=== PATIENT | female | born 1940 | race Caucasian/White ===

== ENCOUNTER 2019-04-07 21:49 | Emergency (ER) | payer MEDICARE ==
[~2019-04-07 21:49] MED LIST: ISOVUE-370 76%-LOCM 1 ML ONE
[2019-04-07 22:31] LABS: #Basophils 0.1 thou/uL (0.0-0.2); #Monocytes 0.6 thou/uL (0.11-0.59); #Neutrophils 3.8 thou/uL (1.40-6.50); %Basophils 1.2 % (0.0-1.0); %Eosinophils 0.4 % (0.0-10.0); %Lymphocytes 30.9 % (21.0-51.0); %Monocytes 8.9 % (0.0-10.0); %Neutrophils 58.7 % (42.0-75.0); Hemoglobin 11.7 g/dL (12.0-16.0); Mean Corpuscular HGB CONC 33.9 g/dL (32.0-36.0); Mean Corpuscular Hemoglobin 32.3 pg (27.0-31.0); Mean Corpuscular Volume 95.2 fL (78.0-98.0); Mean Platelet Volume 7.2 fL (7.4-10.4); Platelet Count 303 thou/uL (130-400); RBC Distribution Width 11.8 % (11.5-14.5); Red Blood Cell (RBC) Count 3.63 mill/uL (4.20-5.40); White Blood Cell (WBC) Count 6.5 thou/uL (4.8-10.8)
[2019-04-07 22:51] LABS: ALT (SGPT) 14 U/L (8-55); AST (SGOT) 21 U/L (5-34); Albumin 4.2 g/dL (3.4-4.8); Alkaline Phosphatase 82 U/L (40-150); Anion Gap 13 mmol/L (10-20); BUN (Urea Nitrogen) 11 mg/dL (9.8-20.1); Bilirubin, Total 0.4 mg/dL (0.2-1.2); Calc. Creatinine Clearance 0 mL/min (70-130); Calcium 9.7 mg/dL (7.8-10.44); Carbon Dioxide 28 mmol/L (23-31); Chloride 95 mmol/L (98-107); Estimated GFR-MDRD 69; Glucose 102 mg/dL (83-110); Lipase 36 U/L (8-78); Potassium 3.9 mmol/L (3.5-5.1); Protein, Total 8.2 g/dL (6.0-8.3); Sodium 132 mmol/L (136-145)
--- NOTE | 2019-04-07 23:07 | RAD ---
Exam: XR Hip Lt 2-3 View HISTORY: Left lower extremity pain. Mechanical fall 2 weeks ago. COMPARISON: AP view pelvis on 07/14/2012 FINDINGS: No acute fracture, dislocation, or other acute osseous abnormality is identified. IMPRESSION: No acute osseous abnormality is identified.
--- NOTE | 2019-04-07 23:08 | RAD ---
Exam: XR Knee Lt 4 View STANDARD HISTORY: Left lower extremity pain after mechanical fall 2 weeks ago. COMPARISON: None FINDINGS: There is mild osteopenia. No acute fracture, dislocation, or other acute osseous abnormality is identified. IMPRESSION: Osteopenia without evidence of an acute osseous abnormality.
[2019-04-07] MEDS ORDERED: Ketorolac Tromethamine 30 MG/ML VIAL ONE (23:30)
[2019-04-07 23:49] LABS: Bilirubin Negative (Negative); Blood, Urine Negative (Negative); Clarity CLOUDY (Clear); Glucose, Urine (Dipstick) Negative (Negative); Leukocyte Negative (Negative); Nitrite Negative (Negative); Protein, Urine (Dipstick) Negative (Neg-Trace); Specific Gravity, Urine 1.005 (1.002-1.036); Urobilinogen 0.2 mg/dL (0.2-1.0); pH, Urine 7.5 (5.0-9.0)
[2019-04-08] MEDS ORDERED: Ondansetron PF 4 MG/2 ML Vial ONE (00:27)
[2019-04-08] MEDS ORDERED: Morphine 4 MG/ML VIAL ONE (00:27)
--- NOTE | 2019-04-08 07:54 | CT ---
FINAL REPORT EMERGENCY AFTER HOURS CT ABDOMEN AND PELVIS: Date: 04/07/19 FINDINGS: I agree with the preliminary report provided by [facility]. There is an acute appearing compression deformity involving L4 with Grade I anterolisthesis. There is an inferior end plate compression abnormality of T11 of undetermined chronicity. The L4 vertebral yenny dy is new from a comparison CT dated 07/15/12 of the pelvis. There is diffuse osteopenia. There is no evidence of bowel obstruction. The liver, spleen, pancreas, adrenal glands, and kidneys appear within normal limits. No free fluid or enlarged lymph nodes are evident. There are moderate to severe calcifications involving the abdominopelvic vasculature. IMPRESSION: 1. Acute appearing L4 compression fracture. 2. Age-indeterminate T11 compression abnormality. Bone scan may be helpful to document the acuity of these fractures. 3. Other chronic findings as above. POS: BH
== END 2019-04-08 02:46 | disposition home or self-care (01) ==
LOC: ERS 21:49
DX: S32.049A Unspecified fracture of fourth lumbar vertebra, initial encounter for closed fracture (principal); E03.9 Hypothyroidism, unspecified; I10 Essential (primary) hypertension; F41.9 Anxiety disorder, unspecified; Z79.899 Other long term (current) drug therapy; W01.198A Fall on same level from slipping, tripping and stumbling with subsequent striking against other object, initial encounter
CPT/HCPCS: 36415; 74177; 80053; 81003; 83690; 85025; 96374; 96375; J1885; J2270; J2405; Q9966

== ENCOUNTER 2019-04-16 10:57 | Inpatient (IN) | payer MEDICARE ==
--- NOTE | 2019-04-16 11:52 | HP ---
HISTORY OF PRESENT ILLNESS: Ms. Glass is a very pleasant and healthy 78-year-old white female. She looks younger than her stated age. On or about 04/07/2019, the patient had a fall where she landed on her side as well as her knee. She had an abrupt onset of terrible low back and leg symptoms. She visited the emergency room on that day and was evaluated by the emergency room physician. She was having terrible pelvic discomfort as well as left hip and abdominal pain. She underwent an abdominal CT that disclosed on sagittal views, an L4 burst deformity more end plate superiorly, but a shift of L4 and L5 with probably pre-existing lumbar stenosis. The patient presents today for ER followup. She continues to be in terrible discomfort with radicular left leg pain and severe urinary retention. In fact, she has periodic overflow incontinence. She states that lower abdomen has been swelling since the injury and notes that when she sits down and finally has a chance to urinate, she will get some relief of pain, but then she will have reaccumulation and retention. She is using a rolling walker currently. She is using minimal pain medication. She is unable to walk without assistance. She was unable to get comfortable in any position. PAST MEDICAL HISTORY: Shows she has thyroid disease. Medical history includes hypertension and anxiety. PAST SURGICAL HISTORY: Shows appendectomy, endometriosis, hernia repair. CURRENT MEDICATIONS: Include: 1. Lisinopril. 2. Xanax. 3. Diclofenac sodium. ALLERGIES: TO KEFLEX. FAMILY HISTORY: Noncontributory. Both parents , heart disease and hypertension. SOCIAL HISTORY: She does not smoke or drink. She lives with her daughter. PHYSICAL EXAMINATION: GENERAL: Shows a well-nourished, developed 78-year-old female, looks younger than stated age. HEENT: Head is normocephalic. Extraocular movements are intact. Pupils are equal. Throat is clear. NECK: Soft, supple. No masses. No pain with range of motion. MUSCULOSKELETAL: Shows difficult to ascertain motor strength in lower extremities due to pain into the legs as well as into the back. She clearly has urinary retention with swelling and tenderness in the lower abdomen. I could not get her to ambulate secondary to pain. Range of motion of lumbar spine was also very painful. She was given an LSO in the emergency room, but was unable to wear because it is very bulky. She stated it did not help when she was wearing it. IMPRESSION: L4 fracture with underlying spondylolisthesis at L4 and L5 and likely critical canal encroachment. PLAN: I spoke with Dr. Kvng Govea. He and I reviewed the films together, I provided the history for him. We will admit the patient, today get an emergent MRI scan of the lumbar spine and then Dr. Govea will meet with the patient this afternoon to discuss surgical options. Job ID: [id number] [facility]
[2019-04-16] MEDS ORDERED: Ondansetron PF 4 MG/2 ML Vial IVP PRN (12:44)
[2019-04-16] MEDS ORDERED: diphenhydrAMINE 50 MG/ML VIAL IM/IV PRN (14:52)
[2019-04-16] MEDS ORDERED: Promethazine HCl 25 MG/ML VIAL IM PRN (14:52)
[2019-04-16] MEDS ORDERED: diphenhydrAMINE 25 MG CAP PO PRN (14:52)
[2019-04-16] MEDS ORDERED: Zolpidem Tartrate 5 MG TAB PO PRN (14:52)
[2019-04-16] MEDS ORDERED: Naloxone HCl 0.4 mg/ml Vial IV PRN (14:52)
[2019-04-16] MEDS: Acetaminophen 325 MG TAB PO PRN (14:57)
[2019-04-16] MEDS: fentaNYL Citrate/PF 2,000 MCG in Sodium Chloride 0.9% 60 ML IV PRN (15:15)
--- NOTE | 2019-04-16 16:00 | MRI ---
MRI lumbar spine. HISTORY: Left leg pain and back pain. Multiplanar, multisequence noncontrast enhanced MRI images lumbar spine. Old compression fracture seen in the inferior endplate of T11. These changes appear to be old. There is approximately 30% height loss involving the inferior aspect of the T11 vertebral level. T11-12, T12-L1: Unremarkable. L1-2: Disc desiccation seen. No significant degree of central or neural foraminal narrowing seen. L2-3: There is some irregularity involving the inferior endplate of L2 and superior endplate of L3. T here is a mild broad-based disc bulge seen. Mild facet and ligamentum flavum hypertrophy is seen. This results in mild central stenosis. The neural foramen are patent. L3-4: There is mild facet hypertrophy seen. Central canal and neural foramen are patent. L4-5: Disc desiccation and degeneration seen. There is marked irregularity and edema in the inferior endplate of L4. There is anterolisthesis of L4 on L5 measuring approximately 6 mm. There is severe L4-5 facet degenerative changes and hypertrophy. The anterolisthesis of L4 on L5 results in severe ce ntral and lateral recess stenosis. There is moderate to severe bilateral neural foraminal narrowing seen. L5-S1: Mild facet hypertrophy seen. The central canal is patent. There is a right L5 S1 neural forami nal area of fluid density possibly presenting a synovial cyst or cyst involving the right L5 nerve sheath. Measuring 6 x 11 mm. This does compress the right L5 nerve root as it passes through th e neural foramen. Impression: 1. Anterolisthesis of L4 on L5 with inferior L4 endplate edema and vertebral body signal changes. Th ere is severe facet hypertrophy and some neural foraminal narrowing seen at L4-5. 2: Right L5-S1 foraminal area of cystic density possibly representing a synovial cyst or nerve root s radu cyst. Transcribed Date/Time: 04/16/2019 4:57 PM
[2019-04-16] MEDS ORDERED: cloNIDine 0.1 MG TAB PO PRN (18:37)
--- NOTE | 2019-04-16 19:00 | PRG ---
DATE OF SERVICE: 04/16/2019 PRIMARY CARE PHYSICIAN: Dr. Abrams. SUBJECTIVE: Ms. Glass is an 78-year-old female, who is currently admitted for L4 fracture. Hospitalist Team was consulted for medical management. The patient denies any new complaints except for some discomfort in the left leg. There is no swelling or erythema reported. No fever, chills, chest pain, or shortness of breath reported. She denies any chest pain, shortness of breath, or palpitations. REVIEW OF SYSTEMS: All other review of systems was reviewed and was found negative. OBJECTIVE: VITAL SIGNS: Temperature 98.2, respirations of 16, pulse rate of 71, blood pressure 159/64, and O2 saturation 98% on room air. GENERAL: An 78-year-old female, in no apparent distress. LUNGS: Clear to auscultation bilaterally. No wheezing, rales, or rhonchi. HEART: S1 and S2 present. Regular rate and rhythm. No rubs or gallops appreciated. There is 2/6 systolic murmur over the mitral area and aortic area. ABDOMEN: Soft and nontender. Bowel sounds present. No rebound or guarding. EXTREMITIES: No edema or calf tenderness. LABORATORY FINDINGS: Recent CBC showed WBC 6.5 with hemoglobin 11.7, hematocrit 34.6, platelet 303. Sodium 132, potassium 3.9, chloride 95, bicarbonate 28, BUN 11, and creatinine 0.8. Urinalysis was negative. Lumbar spine MRI from earlier today showed anterolisthesis of the L4 and L5 with inferior L4 endplate edema and vertebral body signal changes. IMPRESSION: 1. L4 fracture management per primary service. 2. Hypertension. Lisinopril/hydrochlorothiazide will be resumed. We will also resume clonidine as needed. 3. Hypothyroidism. We will resume [place] Thyroid. 4. Anxiety. We will continue low-dose lorazepam on an as needed basis. 5. Chronic insomnia. The patient takes temazepam at home. CODE STATUS: Full code. Surrogate decision maker, the patient makes her own decision with the help of her family. PLAN: Plan of care was discussed with the patient in detail. She stated understanding. Job ID: [id number]
[2019-04-16] MEDS: Lorazepam 1 MG TAB PO SCH (20:07)
[2019-04-17] MEDS: Lorazepam 1 MG TAB PO SCH (08:36)
[2019-04-17] MEDS: Thyroid 60 MG TAB PO SCH (08:48)
[2019-04-17] MEDS ORDERED: Lisinopril 20 MG TAB PO SCH (09:00)
[2019-04-17 09:37] LABS: #Basophils 0.1 thou/uL (0.0-0.2); #Eosinphils 0.1 thou/uL (0.0-0.7); #Lymphocytes 1.9 thou/uL (1.20-3.40); #Monocytes 0.6 thou/uL (0.11-0.59); #Neutrophils 2.9 thou/uL (1.40-6.50); %Basophils 1.8 % (0.0-1.0); %Eosinophils 1.3 % (0.0-10.0); %Lymphocytes 34.5 % (21.0-51.0); %Monocytes 10.6 % (0.0-10.0); %Neutrophils 51.8 % (42.0-75.0); Mean Corpuscular HGB CONC 32.4 g/dL (32.0-36.0); Mean Corpuscular Hemoglobin 31.6 pg (27.0-31.0); Mean Corpuscular Volume 97.5 fL (78.0-98.0); Mean Platelet Volume 6.8 fL (7.4-10.4); Platelet Count 321 thou/uL (130-400); RBC Distribution Width 12.5 % (11.5-14.5); Red Blood Cell (RBC) Count 3.81 mill/uL (4.20-5.40); White Blood Cell (WBC) Count 5.5 thou/uL (4.8-10.8)
[2019-04-17 09:46] LABS: INR-International Normal Ratio 1.1; Prothrombin Time 14.5 SEC (12.0-14.7)
[2019-04-17 09:47] LABS: PTT 33.5 SEC (22.9-36.1)
[2019-04-17] MEDS ORDERED: Temazepam 15 MG CAP PO PRN (09:52)
[2019-04-17] MEDS ORDERED: Lorazepam 1 MG TAB PO PRN (09:52)
[2019-04-17 09:59] LABS: Anion Gap 12 mmol/L (10-20); BUN (Urea Nitrogen) 10 mg/dL (9.8-20.1); Calc. Creatinine Clearance 48 mL/min (70-130); Calcium 9.4 mg/dL (7.8-10.44); Carbon Dioxide 29 mmol/L (23-31); Chloride 97 mmol/L (98-107); Estimated GFR-MDRD 73; Glucose 91 mg/dL (83-110); Potassium 3.8 mmol/L (3.5-5.1); Sodium 134 mmol/L (136-145)
--- NOTE | 2019-04-17 10:26 | PRG ---
DATE OF SERVICE: 04/17/2019 This is a 50-minute initial hospital visit note, in which 50 minutes were spent in review of the record and the complete file examination of the patient, formulation of plan. Greater than 50% time was spent in counseling on the patient. SUBJECTIVE: Ms. Glass is a very pleasant 78-year-old woman with low back and left greater than right lower extremity pain and paresthesias, who has also now had problems with overflow incontinence and decreased mobilization. Review of CT scan of the lumbar spine or of the abdomen and pelvis demonstrates a fracture in the inferior endplate of L4 with edema in this region. There is also evidence of osteoporosis on CT with stranding of the bone. Review of an MRI of the lumbar spine is we are concerned about worsening neurologic decline. It demonstrate severe stenosis at L4-L5 with severe left L4 neuroforaminal stenosis as well. The patient also has a grade 1 spondylolisthesis with a slight kyphosis as well. 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 OBJECTIVE: On exam, the patient is alert, appropriate. She has excellent strength in the lower extremity myotomes, but does have positive straight leg raise and has dysesthetic, sciatic pain just sitting on her left buttocks. Her labs demonstrate no worrisome findings with the exception of mild hyponatremia and her hemodynamics have been stable. She has a Garza catheter in place and she is using a walker for any immobilization. IMPRESSION AND PLAN: I have let the patient know that I have recommended surgery. This would be an L4-L5 laminectomy, partial facetectomy, and foraminotomy with left L4-L5 trans-facet approach for decompression of the exiting left L4 nerve root due to foraminal and far lateral disk extrusion. We will also plan for L4-L5 in situ fusion to promote stability for the patient. Given her age and poor bone quality, I am concerned about putting any hardware in and the patient states she is even asked that dental implants not be put in because she does not want any metal placed in her body. Nevertheless, I think this will provide a decompression of the cauda equina nerve roots to improve neurologic outcome but also promote a chance for stability. We will plan for an LSO brace postoperatively for likely 3 months. INFORMED CONSENT: Goals, indications, risks, alternatives, and complications of the above surgery were discussed in detail with the patient. She understands the risks and wishes that we proceed with surgery. DISCUSSION: There are, 1. Lumbar spondylolisthesis with lumbar stenosis. 2. Osteoporotic fracture. Job ID: [id number]
[2019-04-17] MEDS: Lisinopril 20 MG TAB PO SCH (14:59)
[2019-04-17] MEDS: Lorazepam 1 MG TAB PO PRN (20:28)
--- NOTE | 2019-04-17 22:28 | PDOC.PN ---
- Subjective Encounter Start Date: 04/17/19 Encounter Start Time: 09:00 Patient seen and examined for med mngt. No new focal deficits. No CP. No new complaints. No overnight events - Objective MAR Reviewed: Yes Vital Signs & Weight: Vital Signs (12 hours) Temp Pulse Resp BP Pulse Ox 04/17/19 20:05 98.4 F 69 16 167/67 H 97 04/17/19 14:56 98.2 F 71 18 142/60 H 96 04/17/19 11:29 97.7 F 67 16 150/68 H 95 Weight Weight 114 lb I&O: 04/16/19 04/17/19 04/18/19 06:59 06:59 06:59 Intake Total 1240 1800 Balance 1240 1800 Result Diagrams: 04/17/19 09:21 04/17/19 09:21 Radiology Reviewed by me: Yes (LS spine MRI reviewed) Phys Exam - Physical Examination Constitutional: NAD Respiratory: no wheezing, no rhonchi Cardiovascular: RRR, no rub Gastrointestinal: soft, non-tender, positive bowel sounds Musculoskeletal: no edema Dx/Plan - Plan DVT proph w/SCDs IMPRESSION: 1. L4 fracture management per primary service. 2. Hypertension. 3. Hypothyroidism. 4. Anxiety. 5. Chronic insomnia. PLAN: Hold HCTZ Cont Lisinopril 20 mg daily (at 1500) Cont Armor thyroid Cont PRN Aivan Cont to monitor Review of Systems - Review of Systems Respiratory: negative: Cough, Dry, Shortness of Breath, Hemoptysis, SOB with Excertion, Pleuritic Pain, Sputum, Wheezing Cardiovascular: negative: chest pain, palpitations, orthopnea, paroxysmal nocturnal dyspnea, edema, light headedness, other Gastrointestinal: negative: Nausea, Vomiting, Abdominal Pain, Diarrhea, Constipation, Melena, Hematochezia, Other - Medications/Allergies Allergies/Adverse Reactions: Allergies Allergy/AdvReac Type Severity Reaction Status Date / Time cephalexin [From Keflex] Allergy Hives Verified 04/16/19 14:04 Medications: Current Medications Acetaminophen (Tylenol) 650 mg PO Q4H PRN PRN Reason: Headache/Fever or Pain Last Admin: 04/16/19 14:57 Dose: 650 mg Clonidine (Catapres) 0.1 mg PO Q4H PRN PRN Reason: SBP Greater Than 180 Last Admin: 04/16/19 21:29 Dose: 0.1 mg Diphenhydramine HCl (Benadryl) 25 mg IM/IV Q3H PRN PRN Reason: Itching Diphenhydramine HCl (Benadryl) 25 mg PO Q3H PRN PRN Reason: Itching Fentanyl Citrate 2,000 mcg/ (Sodium Chloride) 100 mls @ 0 mls/hr IV INF PRN PRN Reason: Pain Last Admin: 04/16/19 15:15 Dose: 100 mls Lisinopril (Zestril) 20 mg PO 1500 CHERRI Last Admin: 04/17/19 14:59 Dose: 20 mg Lorazepam (Ativan) 0.5 mg PO TIDPRN PRN PRN Reason: Anxiety Last Admin: 04/17/19 20:28 Dose: 0.5 mg Naloxone HCl (Narcan) 0.2 mg IV Q5MIN PRN PRN Reason: RR <8 or pt obtun/unarousable Ondansetron HCl (Zofran) 4 mg IVP Q6H PRN PRN Reason: Nausea/Vomiting Promethazine HCl (Phenergan) 12.5 mg IM Q4H PRN PRN Reason: Nausea/Vomiting Sodium Chloride (Flush - Normal Saline) 10 ml IVF Q12HR [facility] Last Admin: 04/17/19 08:48 Dose: Not Given Sodium Chloride (Flush - Normal Saline) 10 ml IVF PRN PRN PRN Reason: Saline Flush Temazepam (Restoril) 15 mg PO HS PRN PRN Reason: Insomnia Thyroid ([place] Thyroid) 60 mg PO DAILY [facility] Last Admin: 04/17/19 08:48 Dose: 60 mg Zolpidem Tartrate (Ambien) 5 mg PO HSPRN PRN PRN Reason: Insomnia
[2019-04-17] MEDS: fentaNYL Citrate/PF 2,000 MCG in Sodium Chloride 0.9% 60 ML IV PRN (23:55)
[2019-04-18] MEDS ORDERED: Thrombin 5000 UNITS/5 ML VIAL ONE (06:34)
[2019-04-18] MEDS ORDERED: Sodium Chloride 0.9% 10 ML ONE (06:34)
[2019-04-18] MEDS: Thyroid 60 MG TAB PO SCH (08:22)
[2019-04-18] MEDS ORDERED: Fentanyl 100 MCG/2 ML VIAL SLOW IVP SCH (09:30)
[2019-04-18] MEDS ORDERED: Fentanyl 100 MCG/2 ML VIAL SLOW IVP PRN (09:31)
[2019-04-18] MEDS ORDERED: Ondansetron PF 4 MG/2 ML Vial ONE (10:36)
[2019-04-18] MEDS ORDERED: ePHEDrine 50 MG/ML VIAL ONE (10:36)
[2019-04-18] MEDS ORDERED: Lidocaine 1% PF 5 ML VIAL ONE (10:36)
[2019-04-18] MEDS ORDERED: Dexamethasone 20 MG/5 ML VIAL ONE (10:36)
[2019-04-18] MEDS ORDERED: Rocuronium Bromide 10 MG/ML (10ML VIAL) ONE (10:36)
[2019-04-18] MEDS ORDERED: PROPOFOL 200 MG/20 ML VIAL ONE (10:36)
[2019-04-18] MEDS ORDERED: Phenylephrine HCL 10 MG/ML VIAL ONE (10:36)
[2019-04-18] MEDS ORDERED: Glycopyrrolate 0.2 MG/ML 5 ML SYRINGE ONE (10:36)
--- NOTE | 2019-04-18 10:47 | CON ---
DATE OF CONSULTATION: 04/18/2019 REASON FOR CONSULTATION: Preoperative evaluation. HISTORY OF PRESENT ILLNESS: Ms. Glass is a very pleasant 78-year-old white female, who comes to the hospital for having a fall. She landed on her side on her knee, abrupt onset of low lumbar pain and leg pains. She came to the ER and was found to have L4 and L5 lumbar stenosis with a shift and a fracture. She is scheduled to have surgery today for this and on medical evaluation, she was found to have a loud murmur on the aortic focus, so Cardiology is being consulted for further evaluation. She denies any chest pain, tightness, or pressure. Denies any syncope or presyncope. Denies any shortness of breath with exertion. She states that every time she fall, she actually trips and falls and remembers falling. PAST MEDICAL HISTORY: 1. Thyroid disease. 2. Hypertension. 3. Anxiety. PAST SURGICAL HISTORY: 1. Appendectomy. 2. Endometriosis. 3. Hernia repair. OUTPATIENT MEDICATIONS: 1. Diclofenac. 2. Lorazepam 2 mg p.o. b.i.d. p.r.n. 3. Lisinopril/hydrochlorothiazide 20/12.5 mg a day. 4. Temazepam 30 mg p.o. at bedtime p.r.n. 5. Clonidine 0.1 mg b.i.d. p.r.n. 6. [place] Thyroid 60 mg a day. ALLERGIES: KEFLEX GIVES HER HIVES. FAMILY HISTORY: Noncontributory at this age. SOCIAL HISTORY: No alcohol, tobacco, or drugs. She is very active at home, working on her backyard. REVIEW OF SYSTEMS: A 12-point review of systems was done and was all negative unless stated in the history of present illness. PHYSICAL EXAMINATION: VITAL SIGNS: Temperature 98.5, pulse 84, respiratory rate 16, saturating 96% on room air, and blood pressure 152/71. GENERAL: Awake, alert, and oriented x3, in no distress. HEENT: Normocephalic, atraumatic. NECK: Supple. LUNGS: Clear. CARDIOVASCULAR: S1 and S2. No S3 or S4. There is a grade 3/6 systolic murmur at the right upper sternal border, mid to late peaking, radiated to the rest of the precordium. ABDOMEN: Soft with positive bowel sounds. EXTREMITIES: No edema. SKIN: Warm and dry. LABORATORY DATA: Laboratory work was reviewed. CBC with a white count of 5, hemoglobin of 12, hematocrit of 32, and platelet count of 321. Coags unremarkable. Chemistries; sodium of 134, potassium of 3.8, chloride of 97, carbon dioxide 29, anion gap of 12, BUN of 10, creatinine 0.76, and GFR of 73. IMAGING DATA: EKG was reviewed. Lumbar spine MRI was reviewed. Echocardiogram was reviewed. ASSESSMENT AND PLAN: 1. Preoperative evaluation. 2. Severe/critical aortic valve stenosis. 3. Severe symptomatic lumbar stenosis requiring surgery. PLAN: 1. Ms. Glass is completely asymptomatic from the cardiac perspective. She has no symptoms of angina or anything suggestive of ischemia. At this time, her only issue would be her newly diagnosed critical aortic valve stenosis. She denies any symptoms from her aortic stenosis. However, more than likely the increase in recent amount of falls may be related to just some level of mild cerebral dysfunction from the critical aortic stenosis. At this point, she needs her lumbar surgery and her risk is certainly not prohibitive, so she may proceed. She would be high risk given her severe aortic stenosis. We would just have judicious use of fluids as her likelihood of going into decompensated heart failure is higher because of her aortic stenosis. 2. Certainly, no other procedures are required before surgery, she may proceed. 3. We will plan on getting her back into the office in about a month after her lumbar surgery and start planning on valve replacement procedures. Thank you for letting me participate in the care of your patient. We will follow. Job ID: [id number]
[2019-04-18] MEDS ORDERED: Levofloxacin 500 mg/D5W 100 ml Premix Bag ONE (11:22)
[2019-04-18] MEDS ORDERED: Clindamycin/D5W 900 mg/50 ml Premix Bag ONE (11:22)
[2019-04-18] MEDS ORDERED: Norepinephrine 4 MG/4 ML VIAL ONE (11:23)
[2019-04-18] MEDS ORDERED: Ketamine 50 MG/ML (10ML VIAL) ONE (11:23)
[2019-04-18] MEDS ORDERED: Fentanyl 100 MCG/2 ML VIAL ONE ×4 (11:46→15:29)
[2019-04-18] MEDS ORDERED: HYDROmorphone 2 MG/ML VIAL SLOW IVP PRN (14:49)
[2019-04-18] MEDS ORDERED: Meperidine HCl/PF 25 MG/ML VIAL SLOW IVP PRN (14:49)
[2019-04-18] MEDS ORDERED: Ondansetron HCl/PF 4 MG/2 ML Vial IVP PRN (14:49)
[2019-04-18] MEDS ORDERED: Promethazine HCl 25 MG/ML VIAL SLOW IVP PRN (14:49)
[2019-04-18] MEDS ORDERED: Promethazine HCl 25 MG/ML VIAL IM PRN (14:49)
[2019-04-18] MEDS: Clindamycin/D5W 600 MG in Premix Bag 1 BAG IVPB SCH (18:32)
[2019-04-18] MEDS: Lisinopril 20 MG TAB PO SCH (18:33)
[2019-04-18] MEDS: Sodium Chloride 0.9% 1,000 ML IV SCH (18:40)
[2019-04-18] MEDS: Ondansetron PF 4 MG/2 ML Vial IVP PRN (19:22)
[2019-04-18] MEDS: Senokot S 8.6-50 MG TAB PO SCH (20:19)
[2019-04-18] MEDS ORDERED: cloNIDine 0.1 MG TAB PO PRN (21:00)
--- NOTE | 2019-04-18 21:27 | EKG ---
Test Reason : PREOP Blood Pressure : / mmHG Vent. Rate : 087 BPM Atrial Rate : 087 BPM P-R Int : 246 ms QRS Dur : 092 ms QT Int : 364 ms P-R-T Axes : 060 026 064 degrees QTc Int : 438 ms Sinus rhythm with 1st degree A-V block with Premature atrial complexes Anterior infarct , age undetermined Abnormal ECG No previous ECGs available Confirmed by Gertrudis VASQUEZ ([id number]) on 04/18/2019 9:27:33 PM Referred By: EL Confirmed By:Gertrudis VASQUEZ
[2019-04-19] MEDS: Sodium Chloride 0.9% 1,000 ML IV SCH ×2 (00:48→15:58)
[2019-04-19] MEDS: Clindamycin/D5W 600 MG in Premix Bag 1 BAG IVPB SCH ×3 (03:54→19:04)
--- NOTE | 2019-04-19 08:18 | PDOC.CTH ---
Cardiology Progress Note - Subjective Doing well. nO complaints - Objective Vital Signs Temp Pulse Resp BP BP Pulse Ox 04/19/19 07:25 98.6 F 88 16 150/61 H 97 04/19/19 03:55 98.6 F 84 20 151/56 H 96 04/18/19 23:16 97.8 F 80 20 138/70 97 04/18/19 20:20 93 L Weight 114 lb 04/18/19 04/19/19 04/20/19 06:59 06:59 06:59 Intake Total 2700 1540 Output Total 750 Balance 2700 790 - Physical Examination General/Neuro: alert & oriented x3, NAD Neck: carotid US brisk, no JVD present Lungs: unlabored respirations Heart: RRR, other: (2/6 DOUGLAS) Abdomen: NT/ND, soft Extremities: + femoral B - Labs Result Diagrams: 04/17/19 09:21 04/17/19 09:21 - Assessment/Plan Aortic stenosis Recent lumbar surgery secondary to mild paralyisis Pt with no current symptoms from but felt to be severe. Given no symptoms, close observation recommended. With increased ambulation after lumbar surgery, she may then have symptoms. Plan is to fu with Dr. goins as outpatient Please re-consult if needed. Add low dose toprol
[2019-04-19] MEDS ORDERED: Lisinopril/Hydrochlorothiazide 20 mg/12.5 mg Tablet PO SCH (09:00)
[2019-04-19] MEDS: Thyroid 60 MG TAB PO SCH (09:08)
[2019-04-19] MEDS: Senokot S 8.6-50 MG TAB PO SCH ×2 (09:09→20:07)
[2019-04-19] MEDS: Lorazepam 1 MG TAB PO PRN ×2 (09:09→20:07)
--- NOTE | 2019-04-19 12:39 | PRG ---
DATE OF SERVICE: 04/19/2019 Ms. Glass is postoperative day #1 from lumbar decompression in situ fusion. She is moving all extremities to command and is starting to stand and walk. She has improvement in her left leg pain and is very pleased. Job ID: [id number]
[2019-04-19] MEDS: Acetaminophen 325 MG TAB PO PRN (15:52)
[2019-04-19] MEDS: Lisinopril 20 MG TAB PO SCH (15:53)
--- NOTE | 2019-04-19 21:07 | PDOC.PN ---
- Subjective Encounter Start Date: 04/19/19 Encounter Start Time: 08:15 Patient seen and examined for med mngt. Pain controlled by ONLINE MARKETER. No CP/SOB or Palpitations. No fever/chills. No new complaints. No overnight events - Objective MAR Reviewed: Yes Vital Signs & Weight: Vital Signs (12 hours) Temp Pulse Resp BP BP Pulse Ox 04/19/19 15:53 175/76 H 04/19/19 15:27 99.2 F 102 H 18 175/76 H 92 L 04/19/19 12:00 98.8 F 103 H 18 146/66 H 93 L Weight Weight 114 lb I&O: 04/18/19 04/19/19 04/20/19 06:59 06:59 06:59 Intake Total 2700 1540 Output Total 750 Balance 2700 790 Result Diagrams: 04/17/19 09:21 04/17/19 09:21 Phys Exam - Physical Examination Constitutional: NAD Respiratory: no wheezing, no rhonchi Cardiovascular: RRR, no rub Gastrointestinal: soft, non-tender, positive bowel sounds Musculoskeletal: no edema Neurological: moves all 4 limbs Dx/Plan - Plan DVT proph w/SCDs IMPRESSION: 1. L4 fracture. 2. Hypertension. 3. Severe 4. Anxiety. 5. Chronic insomnia. 6. Hypothyroidism - on Armor thyroid 7. Chronic diastolic HF PLAN: Resume HCTZ Cont Lisinopril 20 mg daily DC IVF when tolerating PO Cont other meds as below Cont PRN meds Review of Systems - Review of Systems Respiratory: negative: Cough, Dry, Shortness of Breath, Hemoptysis, SOB with Excertion, Pleuritic Pain, Sputum, Wheezing Cardiovascular: negative: chest pain, palpitations, orthopnea, paroxysmal nocturnal dyspnea, edema, light headedness, other Gastrointestinal: negative: Nausea, Vomiting, Abdominal Pain, Diarrhea, Constipation, Melena, Hematochezia, Other - Medications/Allergies Allergies/Adverse Reactions: Allergies Allergy/AdvReac Type Severity Reaction Status Date / Time cephalexin [From Keflex] Allergy Hives Verified 04/16/19 14:04 Medications: Current Medications Acetaminophen (Tylenol) 650 mg PO Q4H PRN PRN Reason: Headache/Fever or Pain Last Admin: 04/19/19 15:52 Dose: 650 mg Clonidine (Catapres) 0.1 mg PO BID PRN PRN Reason: Hypertension Diphenhydramine HCl (Benadryl) 25 mg IM/IV Q3H PRN PRN Reason: Itching Diphenhydramine HCl (Benadryl) 25 mg PO Q3H PRN PRN Reason: Itching Fentanyl Citrate 2,000 mcg/ (Sodium Chloride) 100 mls @ 0 mls/hr IV INF PRN PRN Reason: Pain Last Admin: 04/17/19 23:55 Dose: 100 mls Clindamycin Phosphate/Dextrose (600 mg/ Device) 50 mls @ 100 mls/hr IVPB Q8H [facility] Last Admin: 04/19/19 19:04 Dose: 50 mls Levofloxacin 500 mg/ Device 100 mls @ 100 mls/hr IVPB Q24HR [facility] Stop: 04/20/19 12:01 Last Admin: 04/19/19 11:52 Dose: 100 mls Sodium Chloride (Normal Saline 0.9%) 1,000 mls @ 75 mls/hr IV .[id number] [facility] Last Admin: 04/19/19 15:58 Dose: 1,000 mls Lisinopril (Zestril) 20 mg PO 1500 [facility] Last Admin: 04/19/19 15:53 Dose: 20 mg Lorazepam (Ativan) 0.5 mg PO TIDPRN PRN PRN Reason: Anxiety Last Admin: 04/19/19 20:07 Dose: 0.5 mg Lorazepam (Ativan) 2 mg PO BID PRN PRN Reason: Anxiety Metoprolol Succinate (Toprol Xl) 25 mg PO DAILY [facility] Naloxone HCl (Narcan) 0.2 mg IV Q5MIN PRN PRN Reason: RR <8 or pt obtun/unarousable Ondansetron HCl (Zofran) 4 mg IVP Q6H PRN PRN Reason: Nausea/Vomiting Last Admin: 04/18/19 19:22 Dose: 4 mg Promethazine HCl (Phenergan) 12.5 mg IM Q4H PRN PRN Reason: Nausea/Vomiting Senna/Docusate Sodium (Senokot S) 2 tab PO BID [facility] Last Admin: 04/19/19 20:07 Dose: 2 tab Sodium Chloride (Flush - Normal Saline) 10 ml IVF Q12HR [facility] Last Admin: 04/19/19 20:07 Dose: 10 ml Sodium Chloride (Flush - Normal Saline) 10 ml IVF PRN PRN PRN Reason: Saline Flush Temazepam (Restoril) 15 mg PO HS PRN PRN Reason: Insomnia Temazepam (Restoril) 30 mg PO HS PRN PRN Reason: Insomnia Thyroid ([place] Thyroid) 60 mg PO DAILY [facility] Last Admin: 04/19/19 09:08 Dose: 60 mg Zolpidem Tartrate (Ambien) 5 mg PO HSPRN PRN PRN Reason: Insomnia
[2019-04-20] MEDS: Clindamycin/D5W 600 MG in Premix Bag 1 BAG IVPB SCH ×3 (03:20→18:34)
[2019-04-20] MEDS: Temazepam 15 MG CAP PO PRN (03:52)
[2019-04-20] MEDS ORDERED: Sodium Chloride 0.9% 500 ML IV SCH (08:00)
[2019-04-20] MEDS ORDERED: Lorazepam 2 MG/ML VIAL ONE (08:06)
[2019-04-20] MEDS ORDERED: Lorazepam 2 MG/ML VIAL SLOW IVP SCH (08:15)
[2019-04-20 08:33] LABS: Hemoglobin 11.3 g/dL (12.0-16.0); Platelet Count 280 thou/uL (130-400)
[2019-04-20 09:00] LABS: Anion Gap 9 mmol/L (10-20); BUN (Urea Nitrogen) 9 mg/dL (9.8-20.1); Calc. Creatinine Clearance 55 mL/min (70-130); Calcium 8.5 mg/dL (7.8-10.44); Carbon Dioxide 29 mmol/L (23-31); Chloride 96 mmol/L (98-107); Estimated GFR-MDRD 85; Glucose 103 mg/dL (83-110); Magnesium 1.8 mg/dL (1.6-2.6); Potassium 3.8 mmol/L (3.5-5.1); Sodium 130 mmol/L (136-145)
[2019-04-20 09:06] LABS: Phosphorus 1.9 mg/dL (2.3-4.7)
--- NOTE | 2019-04-20 09:12 | RAD ---
PORTABLE CHEST 1 VIEW: DATE: 04/20/2019. TIME: 7:57 a.m. HISTORY: Shortness of breath. FINDINGS/IMPRESSION: The heart size is enlarged. There is consolidation in the left lower lung with probable small effusi on. No pneumothoraces are seen. There is mild prominence of the pulmonary vascularity. POS: [facility]
[2019-04-20] MEDS ORDERED: Furosemide 20 MG TAB PO SCH (09:15)
[2019-04-20] MEDS: Diltiazem 125 MG in Sodium Chloride 0.9% 100 ML IVPB SCH (09:20)
[2019-04-20 09:23] LABS: CKMB 1.3 ng/mL (0-6.6)
--- NOTE | 2019-04-20 09:30 | PRG ---
DATE OF SERVICE: 04/20/2019 Ms. Glass is postoperative day 2 following lumbar decompression, diskectomy, and in situ fusion. Unfortunately, she developed atrial fibrillation with rapid ventricular response. Kindly, our medical colleagues are assisting us in this regard and transferred her to telemetry for diltiazem drip infusion. Cardiology is also following along. She has had some left hip pain, likely related to stress and radiculitis from recent surgery, but the back does feel better and she does not have the significant pain down her left leg. She did try and mobilize yesterday with physical therapy and is doing well in this regard. She remains with a Garza catheter in place. Job ID: [id number]
[2019-04-20 09:31] LABS: White Blood Cell (WBC) Count 8.5 thou/uL (4.8-10.8)
[2019-04-20] MEDS: Senokot S 8.6-50 MG TAB PO SCH ×2 (10:44→21:59)
[2019-04-20] MEDS: Thyroid 60 MG TAB PO SCH (10:45)
[2019-04-20] MEDS: Sodium Chloride 0.9% 1,000 ML IV SCH (11:06)
[2019-04-20] MEDS ORDERED: Furosemide 20 MG/2 ML VIAL SLOW IVP SCH (12:00)
[2019-04-20] MEDS: K-Phos Neutral 250 MG TAB PO SCH ×2 (12:14→17:33)
[2019-04-20] MEDS ORDERED: Lisinopril/Hydrochlorothiazide 20 mg/12.5 mg Tablet PO SCH (15:00)
[2019-04-20] MEDS ORDERED: Lisinopril/Hydrochlorothiazide 10 mg/12.5 mg Tablet PO SCH (15:00)
[2019-04-20] MEDS: fentaNYL Citrate/PF 2,000 MCG in Sodium Chloride 0.9% 60 ML IV PRN (15:59)
[2019-04-20] MEDS ORDERED: Polyethylene Glycol 3350 17 GM Packet PO SCH (18:30)
--- NOTE | 2019-04-20 19:52 | PDOC.PN ---
- Subjective Encounter Start Date: 04/20/19 Encounter Start Time: 08:30 Patient seen and examined for med mngt. RN called due to tachycardia. STAT EKG - Afib with RVR. No CP/SOB/fever/cough. No other complaints. No overnight events - Objective MAR Reviewed: Yes Vital Signs & Weight: Vital Signs (12 hours) Temp Pulse Resp BP Pulse Ox 04/20/19 16:00 98.5 F 90 18 123/60 95 04/20/19 12:21 98.5 F 112 H 14 107/56 L 92 L 04/20/19 09:30 95 04/20/19 09:17 99.3 F 147 H 16 114/79 97 Weight Weight 114 lb I&O: 04/19/19 04/20/19 04/21/19 06:59 06:59 06:59 Intake Total 1540 900 Output Total 750 950 Balance 790 -50 Result Diagrams: 04/20/19 07:58 04/21/19 04:23 Radiology Reviewed by me: Yes (CXR - ?infiltrate) EKG Reviewed by me: Yes (Afib with RVR) Phys Exam - Physical Examination Constitutional: NAD (Anxious appearing) Neck: no JVD Respiratory: no wheezing, no rales, no rhonchi, clear to auscultation bilateral dec AE at bases Cardiovascular: RRR, no rub 3/6 SM at aortic area, no heaves/pulsations Gastrointestinal: soft, non-tender, no distention, positive bowel sounds Musculoskeletal: no edema, pulses present Neurological: non-focal, moves all 4 limbs Psychiatric: normal affect, A&O x 3 Dx/Plan - Plan plan discussed w/ family, peter catheter, PT/OT, DVT proph w/SCDs IMPRESSION: 1. Atrial fibrillation with RVR (new onset) 2. Hypertension. 3. Severe 4. Anxiety. 5. Chronic insomnia. 6. Hypothyroidism - on Armor thyroid 7. Chronic diastolic HF Plan: Cont Toprol XL per Cardiology Transfer to Telemetry for close monitoring Cardizem drip@ 5mg/hr Check troponins/BMP/electrolytes/Hemoglobin/CXR Cardiology/NSG updated Cont other meds as below Resume PT/OT CXR - reviewed - ? infiltrate - no fever/cough reported - Will get CXR PA/Lat in AM Review of Systems - Review of Systems Respiratory: negative: Cough, Dry, Shortness of Breath, Hemoptysis, SOB with Excertion, Pleuritic Pain, Sputum, Wheezing Cardiovascular: negative: chest pain, palpitations, orthopnea, paroxysmal nocturnal dyspnea, edema, light headedness, other - Medications/Allergies Allergies/Adverse Reactions: Allergies Allergy/AdvReac Type Severity Reaction Status Date / Time cephalexin [From Keflex] Allergy Hives Verified 04/16/19 14:04 Medications: Current Medications Acetaminophen (Tylenol) 650 mg PO Q4H PRN PRN Reason: Headache/Fever or Pain Last Admin: 04/19/19 15:52 Dose: 650 mg Clonidine (Catapres) 0.1 mg PO BID PRN PRN Reason: Hypertension Diphenhydramine HCl (Benadryl) 25 mg IM/IV Q3H PRN PRN Reason: Itching Diphenhydramine HCl (Benadryl) 25 mg PO Q3H PRN PRN Reason: Itching Fentanyl Citrate 2,000 mcg/ (Sodium Chloride) 100 mls @ 0 mls/hr IV INF PRN PRN Reason: Pain Last Admin: 04/20/19 15:59 Dose: 100 mls Diltiazem HCl 125 mg/ Sodium (Chloride) 125 mls @ 5 mls/hr IVPB INF [facility]; Protocol Last Admin: 04/20/19 09:20 Dose: 125 mls Lorazepam (Ativan) 2 mg PO BID PRN PRN Reason: Anxiety Metoprolol Succinate (Toprol Xl) 25 mg PO DAILY [facility] Last Admin: 04/20/19 07:55 Dose: 25 mg Naloxone HCl (Narcan) 0.2 mg IV Q5MIN PRN PRN Reason: RR <8 or pt obtun/unarousable Ondansetron HCl (Zofran) 4 mg IVP Q6H PRN PRN Reason: Nausea/Vomiting Last Admin: 04/18/19 19:22 Dose: 4 mg Phosphorus (Kphos Neutral) 250 mg PO TID-[facility] Last Admin: 04/20/19 17:33 Dose: 250 mg Polyethylene Glycol (Miralax) 17 gm PO DAILY [facility] Polyethylene Glycol (Miralax) 17 gm PO NOW [facility] Stop: 04/20/19 21:30 Last Admin: 04/20/19 18:48 Dose: Not Given Promethazine HCl (Phenergan) 12.5 mg IM Q4H PRN PRN Reason: Nausea/Vomiting Senna/Docusate Sodium (Senokot S) 2 tab PO BID [facility] Last Admin: 04/20/19 10:44 Dose: 2 tab Sodium Chloride (Flush - Normal Saline) 10 ml IVF Q12HR [facility] Last Admin: 04/20/19 10:44 Dose: 10 ml Sodium Chloride (Flush - Normal Saline) 10 ml IVF PRN PRN PRN Reason: Saline Flush Temazepam (Restoril) 15 mg PO HS PRN PRN Reason: Insomnia Temazepam (Restoril) 30 mg PO HS PRN PRN Reason: Insomnia Last Admin: 04/20/19 03:52 Dose: 30 mg Thyroid ([place] Thyroid) 60 mg PO DAILY [facility] Last Admin: 04/20/19 10:45 Dose: 60 mg Zolpidem Tartrate (Ambien) 5 mg PO HSPRN PRN PRN Reason: Insomnia
[2019-04-20] MEDS: Ondansetron PF 4 MG/2 ML Vial IVP PRN (21:59)
[2019-04-20] MEDS: Lorazepam 1 MG TAB PO PRN (22:02)
[2019-04-21 04:50] LABS: Albumin 2.9 g/dL (3.4-4.8); Anion Gap 6 mmol/L (10-20); BUN (Urea Nitrogen) 8 mg/dL (9.8-20.1); BUN/Creatinine Ratio 13.33; Calc. Creatinine Clearance 61 mL/min (70-130); Calcium 8.4 mg/dL (7.8-10.44); Carbon Dioxide 32 mmol/L (23-31); Chloride 94 mmol/L (98-107); Estimated GFR-MDRD Greater than 90; Glucose 92 mg/dL (83-110); Magnesium 1.7 mg/dL (1.6-2.6); Phosphorus 2.2 mg/dL (2.3-4.7); Potassium 3.2 mmol/L (3.5-5.1); Sodium 129 mmol/L (136-145)
[2019-04-21] MEDS ORDERED: Magnesium 2 GM/50 ML 2 GM in Premix Bag 1 BAG IVPB SCH (07:45)
[2019-04-21] MEDS: K-Phos Neutral 250 MG TAB PO SCH ×3 (08:00→16:25)
[2019-04-21] MEDS: Polyethylene Glycol 3350 17 GM Packet PO SCH (08:00)
[2019-04-21] MEDS: Senokot S 8.6-50 MG TAB PO SCH ×2 (08:00→20:39)
[2019-04-21] MEDS: Diltiazem 125 MG in Sodium Chloride 0.9% 100 ML IVPB SCH (08:00)
[2019-04-21] MEDS: Thyroid 60 MG TAB PO SCH (08:02)
--- NOTE | 2019-04-21 09:50 | RAD ---
Chest 2 views HISTORY: Pulmonary edema. Pneumonia. COMPARISON: 04/20/2019. FINDINGS: Cardiac silhouette is partially obscured by bilateral pleural fluid and patchy bibasilar in filtrates. Atelectasis now more evident within the medial segment right middle lobe. Slight elevation of the right hemidiaphragm. No evidence of pneumothorax. Mediastinum is midline with aortic calcification. Osseous structures are demineralized. IMPRESSION: Increasing bilateral pleural fluid and right middle lobe atelectasis. Atherosclerosis. Osteoporosis.
[2019-04-21] MEDS: Lorazepam 1 MG TAB PO PRN (11:18)
--- NOTE | 2019-04-21 11:28 | PRG ---
DATE OF SERVICE: 04/21/2019 SUBJECTIVE: Ms. Glass is postoperative day 3 for lumbar decompression and in situ fusion. She is doing well from a neurosurgical standpoint with improvement in her bilateral lower extremity pain. She did have some hip pain yesterday, but this is improved. Her major issues at this point frankly are medical with atrial fibrillation with rapid ventricular response, which has responded to diltiazem. She has increasing infiltrates on her chest x-ray. Dr. Beckett is following along. Job ID: [id number]
[2019-04-21] MEDS ORDERED: traMADol HCl 50 MG TAB PO PRN (11:48)
[2019-04-21] MEDS ORDERED: Gabapentin 100 MG CAP PO SCH (12:00)
[2019-04-21] MEDS: Calcium Carbonate 500 MG ChewTAB PO PRN (12:19)
[2019-04-21] MEDS: HYDROcodone/Acetaminophen 10/325 mg Tablet PO PRN (12:20)
[2019-04-21 13:23] LABS: Potassium, Urine 22.6 mmol/L
--- NOTE | 2019-04-21 14:21 | PDOC.PN ---
- Subjective Encounter Start Date: 04/21/19 Encounter Start Time: 14:13 Pt seen for followup re: elif casas with RVR. Says she feels better. c/o indigestion. - Objective MAR Reviewed: Yes Vital Signs & Weight: Vital Signs (12 hours) Temp Pulse Pulse Pulse Resp BP BP 04/21/19 13:24 80 82 150/87 H 143/83 H 04/21/19 11:19 98.6 F 107 H 17 04/21/19 07:54 98.3 F 77 15 04/21/19 04:10 98.8 F 65 14 BP Pulse Ox 04/21/19 13:24 04/21/19 11:19 122/75 93 L 04/21/19 07:54 116/58 L 93 L 04/21/19 04:10 105/59 L 92 L Weight Weight 114 lb I&O: 04/20/19 04/21/19 04/22/19 06:59 06:59 06:59 Intake Total 900 Output Total 950 Balance -50 Result Diagrams: 04/20/19 07:58 04/21/19 04:23 EKG Reviewed by me: Yes (Tele: elif casas with RVR) Phys Exam - Physical Examination Constitutional: NAD HEENT: moist MMs Neck: supple Kalin crackles Cardiovascular: irregular Gastrointestinal: soft Neurological: moves all 4 limbs Psychiatric: normal affect Dx/Plan (1) Atrial fibrillation with RVR Code(s): I48.91 - UNSPECIFIED ATRIAL FIBRILLATION Status: Acute Comment: continue cardizem drip and stock broker (2) Hyponatremia Code(s): E87.1 - HYPO-OSMOLALITY AND HYPONATREMIA Status: Acute Comment: likely due to lung disease (volume overload). HCTZ is on hold. Initiate workup , restrict daily fluid intake to 1500 ml. (3) Acute diastolic CHF (congestive heart failure), NYHA class 3 Code(s): I50.31 - ACUTE DIASTOLIC (CONGESTIVE) HEART FAILURE Status: Acute Comment: give one time dose of furosemide (20 mg) IV, reassess (4) Aortic stenosis Code(s): I35.0 - NONRHEUMATIC AORTIC (VALVE) STENOSIS Status: Chronic Comment: for management as outpatient (5) Hypothyroidism Code(s): E03.9 - HYPOTHYROIDISM, UNSPECIFIED Status: Chronic Comment: continue thyroid replacement therapy. - Plan * . Review of Systems - Review of Systems Cardiovascular: negative: chest pain, palpitations, orthopnea, paroxysmal nocturnal dyspnea, edema, light headedness Gastrointestinal: Other (Indigestion). negative: Nausea, Vomiting, Abdominal Pain, Diarrhea, Constipation, Melena, Hematochezia - Medications/Allergies Allergies/Adverse Reactions: Allergies Allergy/AdvReac Type Severity Reaction Status Date / Time cephalexin [From Keflex] Allergy Hives Verified 04/16/19 14:04 Medications: Current Medications Acetaminophen (Tylenol) 650 mg PO Q4H PRN PRN Reason: Headache/Fever or Pain Last Admin: 04/19/19 15:52 Dose: 650 mg Hydrocodone Bitart/Acetaminophen ([place] 10/325) 1 tab PO Q4H PRN PRN Reason: Mild Pain (1-4) Hydrocodone Bitart/Acetaminophen (Liberal 10/325) 2 tab PO Q4H PRN PRN Reason: MILD TO SEVERE PAIN (5-10) Last Admin: 04/21/19 12:20 Dose: 2 tab Calcium Carbonate (Tums) 1,000 mg PO BIDPRN PRN PRN Reason: Indigestion Last Admin: 04/21/19 12:19 Dose: 1,000 mg Clonidine (Catapres) 0.1 mg PO BID PRN PRN Reason: Hypertension Cyclobenzaprine HCl (Flexeril) 10 mg PO BID PRN PRN Reason: Muscle Spasm Diphenhydramine HCl (Benadryl) 25 mg IM/IV Q3H PRN PRN Reason: Itching Diphenhydramine HCl (Benadryl) 25 mg PO Q3H PRN PRN Reason: Itching Furosemide (Lasix) 20 mg SLOW IVP ONE [facility] Stop: 04/21/19 16:00 Gabapentin (Neurontin) 100 mg PO BID [facility] Diltiazem HCl 125 mg/ Sodium (Chloride) 125 mls @ 5 mls/hr IVPB INF [facility]; Protocol Last Admin: 04/21/19 08:00 Dose: 125 mls Lorazepam (Ativan) 2 mg PO BID PRN PRN Reason: Anxiety Last Admin: 04/21/19 11:18 Dose: 2 mg Metoprolol Succinate (Toprol Xl) 25 mg PO DAILY [facility] Last Admin: 04/21/19 08:00 Dose: 25 mg Naloxone HCl (Narcan) 0.2 mg IV Q5MIN PRN PRN Reason: RR <8 or pt obtun/unarousable Ondansetron HCl (Zofran) 4 mg IVP Q6H PRN PRN Reason: Nausea/Vomiting Last Admin: 04/20/19 21:59 Dose: 4 mg Phosphorus (Kphos Neutral) 250 mg PO TID-[facility] Last Admin: 04/21/19 11:14 Dose: 250 mg Polyethylene Glycol (Miralax) 17 gm PO DAILY [facility] Last Admin: 04/21/19 08:00 Dose: 17 gm Promethazine HCl (Phenergan) 12.5 mg IM Q4H PRN PRN Reason: Nausea/Vomiting Senna/Docusate Sodium (Senokot S) 2 tab PO BID [facility] Last Admin: 04/21/19 08:00 Dose: 2 tab Sodium Chloride (Flush - Normal Saline) 10 ml IVF Q12HR [facility] Last Admin: 04/21/19 08:01 Dose: 10 ml Sodium Chloride (Flush - Normal Saline) 10 ml IVF PRN PRN PRN Reason: Saline Flush Temazepam (Restoril) 15 mg PO HS PRN PRN Reason: Insomnia Temazepam (Restoril) 30 mg PO HS PRN PRN Reason: Insomnia Last Admin: 04/20/19 03:52 Dose: 30 mg Thyroid ([place] Thyroid) 60 mg PO DAILY [facility] Last Admin: 04/21/19 08:02 Dose: 60 mg Tramadol HCl (Ultram) 50 mg PO Q6H PRN PRN Reason: Mild Pain (1-4) Tramadol HCl (Ultram) 100 mg PO Q6H PRN PRN Reason: Moderate to Severe Pain (5-10) Zolpidem Tartrate (Ambien) 5 mg PO HSPRN PRN PRN Reason: Insomnia
[2019-04-21] MEDS ORDERED: Furosemide 20 MG/2 ML VIAL SLOW IVP SCH (14:30)
[2019-04-21 16:19] LABS: #Basophils 0.1 thou/uL (0.0-0.2); #Eosinphils 0.1 thou/uL (0.0-0.7); #Monocytes 0.7 thou/uL (0.11-0.59); #Neutrophils 5.3 thou/uL (1.40-6.50); %Basophils 1.5 % (0.0-1.0); %Lymphocytes 24.7 % (21.0-51.0); %Neutrophils 64.8 % (42.0-75.0); Hemoglobin 11.4 g/dL (12.0-16.0); Mean Corpuscular HGB CONC 33.2 g/dL (32.0-36.0); Mean Corpuscular Hemoglobin 32.2 pg (27.0-31.0); Mean Corpuscular Volume 97.1 fL (78.0-98.0); Mean Platelet Volume 6.7 fL (7.4-10.4); Platelet Count 303 thou/uL (130-400); RBC Distribution Width 12.4 % (11.5-14.5); Red Blood Cell (RBC) Count 3.54 mill/uL (4.20-5.40); White Blood Cell (WBC) Count 8.1 thou/uL (4.8-10.8)
[2019-04-21] MEDS: Gabapentin 100 MG CAP PO SCH (20:39)
[2019-04-21] MEDS: Temazepam 15 MG CAP PO PRN (20:40)
[2019-04-22] MEDS: HYDROcodone/Acetaminophen 10/325 mg Tablet PO PRN ×3 (04:33→17:59)
[2019-04-22 06:30] LABS: Anion Gap 9 mmol/L (10-20); BUN (Urea Nitrogen) 6 mg/dL (9.8-20.1); BUN/Creatinine Ratio 10.17; Calc. Creatinine Clearance 65 mL/min (70-130); Calcium 8.3 mg/dL (7.8-10.44); Carbon Dioxide 33 mmol/L (23-31); Chloride 90 mmol/L (98-107); Estimated GFR-MDRD Greater than 90; Glucose 91 mg/dL (83-110); Magnesium 1.8 mg/dL (1.6-2.6); Phosphorus 2.3 mg/dL (2.3-4.7); Sodium 129 mmol/L (136-145)
[2019-04-22 06:33] LABS: Potassium 2.9 mmol/L (3.5-5.1)
[2019-04-22] MEDS ORDERED: Potassium Chloride 20 MEQ in Premix Bag 1 BAG IVPB SCH ×2 (07:00→08:00)
[2019-04-22] MEDS: Diltiazem 125 MG in Sodium Chloride 0.9% 100 ML IVPB SCH (07:50)
[2019-04-22] MEDS: K-Phos Neutral 250 MG TAB PO SCH ×3 (08:53→17:54)
[2019-04-22] MEDS: Senokot S 8.6-50 MG TAB PO SCH ×2 (08:54→22:00)
[2019-04-22] MEDS: Gabapentin 100 MG CAP PO SCH ×2 (08:54→22:00)
[2019-04-22] MEDS: Potassium Chloride 20 MEQ TAB PO SCH ×2 (08:54→12:26)
[2019-04-22] MEDS: Polyethylene Glycol 3350 17 GM Packet PO SCH (08:55)
[2019-04-22] MEDS: Thyroid 60 MG TAB PO SCH (08:55)
[2019-04-22] MEDS ORDERED: Diltiazem 125 MG in Sodium Chloride 0.9% 100 ML IVPB SCH (09:44)
[2019-04-22] MEDS ORDERED: Dronedarone HCl 400 MG TAB PO SCH (10:00)
--- NOTE | 2019-04-22 10:50 | PRG ---
DATE OF SERVICE: 04/20/2019 TIME OF VISIT: 11:15 am. SUBJECTIVE: Ms. Glass is complaining of fatigue and hunger at this time. She converted to atrial fibrillation with RVR overnight. She has been started on a Cardizem drip and her heart rate dropped from 160 to 110 to 115 range. She denies any chest pain or shortness of breath. She denies any pressure. She is lying in bed, resting comfortably. OBJECTIVE: VITAL SIGNS: Blood pressure is stable. Pulse rate is 110 to 115 on average. O2 sats are stable. Respiratory rate is 16. GENERAL: This is a pleasant middle-aged female who is in no acute distress. NEUROLOGIC: She is alert, awake, and oriented x3. HEENT: Mucous membranes moist. LUNGS: Clear bilaterally. CARDIOVASCULAR: Irregularly irregular with 2/6 systolic ejection murmur. ABDOMEN: Soft. EXTREMITIES: No clubbing, cyanosis, or edema. LABORATORY DATA: Telemetry shows atrial fibrillation with RVR. IMPRESSION: 1. Postoperative atrial fibrillation with rapid ventricular response. 2. Status post lumbar decompression and fusion. 3. History of aortic stenosis. At this time, the patient's heart rate is improved on the Cardizem drip. I will continue this and not increase right now. Her blood pressure is stable, but systolic is now 105 to 110 after starting the Cardizem drip. She may benefit from a digoxin in the future. I will give her a dose of IV Lasix. We will recheck on her in a couple of hours. Job ID: [id number] MTDD
--- NOTE | 2019-04-22 12:13 | PRG ---
DATE OF SERVICE: 04/22/2019 This is Ezekiel Dill PA-C dictating a report for Kvng Govea MD. Ms. Glass is postoperative day #4 having undergone lumbar laminectomy with in situ fusion. In regard to neurosurgical standpoint, she is doing well. She continues with low sodium and our hospital colleagues are helping manage this. She also has some low potassium. From neurosurgical standpoint, she is doing well. She has complete resolution of left calf pain and continues with moderate to severe left hip pain, although she notes this is slightly improved today. She also has some improvement in her incisional back pain. She had a bowel movement yesterday and states she does also feel better. Her heart rate has been under better control, but she remains on IV Cardene. At this time, Neurosurgery will sign off as the patient has medical conditions that are keeping her in the hospital. Once she is cleared from medical standpoint, she is safe for discharge. We will arrange for a followup appointment in our office in roughly 2-1/2 to 3 weeks postop. I would like the incision to remain covered with clean dry gauze and tape with daily dressing changes. She needs to refrain from any type of aspirin or other blood thinners until seen by Neurosurgery. She should wear her LSO brace anytime she is out of bed. She should lift less than 10 pounds and avoid bending and twisting at the waist. She also needs outpatient followup with Cardiology given severe aortic stenosis, so this can be addressed. Do not soak the incision in water, showers only. Please call with any changes in the patient's neurologic status or any questions or concerns, otherwise Neurosurgery sign off. Job ID: [id number]
--- NOTE | 2019-04-22 15:11 | PDOC.PN ---
- Subjective Encounter Start Date: 04/22/19 Encounter Start Time: 08:20 Pt seen for followup re: hyponatremia. Says she feels better. - Objective MAR Reviewed: Yes Vital Signs & Weight: Vital Signs (12 hours) Temp Pulse Pulse Resp BP BP BP 04/22/19 12:00 98.7 F 113 H 16 122/76 04/22/19 10:20 64 119/73 141/66 H 04/22/19 07:25 98.2 F 80 16 95/50 L 04/22/19 04:00 97.5 F L 60 18 118/58 L Pulse Ox Pulse Ox Pulse Ox 04/22/19 12:00 95 04/22/19 10:20 95 85 L 04/22/19 07:25 92 L 04/22/19 04:00 95 Weight Weight 119 lb 3.2 oz I&O: 04/21/19 04/22/19 04/23/19 06:59 06:59 06:59 Intake Total 900 415 Output Total 950 2500 Balance Result Diagrams: 04/23/19 08:37 04/23/19 09:44 EKG Reviewed by me: Yes (Tele: elif casas) Phys Exam - Physical Examination Constitutional: NAD HEENT: moist MMs Neck: supple Kalin crackles Cardiovascular: irregular Gastrointestinal: soft Neurological: moves all 4 limbs Psychiatric: normal affect Dx/Plan (1) Hyponatremia Code(s): E87.1 - HYPO-OSMOLALITY AND HYPONATREMIA Status: Acute Comment: sodium stable at 129. Restrict free fluid intake to 1200 ml/24 h. 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 (2) Atrial fibrillation with RVR Code(s): I48.91 - UNSPECIFIED ATRIAL FIBRILLATION Status: Acute Comment: rate-controlled with cardizem drip (3) Acute diastolic CHF (congestive heart failure), NYHA class 3 Code(s): I50.31 - ACUTE DIASTOLIC (CONGESTIVE) HEART FAILURE Status: Acute Comment: pt received furosemide today (4) Aortic stenosis Code(s): I35.0 - NONRHEUMATIC AORTIC (VALVE) STENOSIS Status: Chronic Comment: for management as outpatient (5) Hypothyroidism Code(s): E03.9 - HYPOTHYROIDISM, UNSPECIFIED Status: Chronic Comment: on thyroid replacement therapy. - Plan * . Discussed with neurosurgery service, they will sign off but will revisit if needed. Review of Systems - Review of Systems Respiratory: negative: Cough, Shortness of Breath, SOB with Excertion, Pleuritic Pain, Wheezing Cardiovascular: negative: chest pain, palpitations, orthopnea, paroxysmal nocturnal dyspnea, edema, light headedness - Medications/Allergies Allergies/Adverse Reactions: Allergies Allergy/AdvReac Type Severity Reaction Status Date / Time cephalexin [From Keflex] Allergy Hives Verified 04/16/19 14:04 Medications: Current Medications Acetaminophen (Tylenol) 650 mg PO Q4H PRN PRN Reason: Headache/Fever or Pain Last Admin: 04/19/19 15:52 Dose: 650 mg Hydrocodone Bitart/Acetaminophen ([place] 10/325) 1 tab PO Q4H PRN PRN Reason: Mild Pain (1-4) Hydrocodone Bitart/Acetaminophen ([place] 10/325) 2 tab PO Q4H PRN PRN Reason: MILD TO SEVERE PAIN (5-10) Last Admin: 04/22/19 08:53 Dose: 2 tab Calcium Carbonate (Tums) 1,000 mg PO BIDPRN PRN PRN Reason: Indigestion Last Admin: 04/21/19 12:19 Dose: 1,000 mg Clonidine (Catapres) 0.1 mg PO BID PRN PRN Reason: Hypertension Cyclobenzaprine HCl (Flexeril) 10 mg PO BID PRN PRN Reason: Muscle Spasm Diltiazem HCl (Cardizem) 60 mg PO Q6HR [facility] Last Admin: 04/22/19 12:27 Dose: 60 mg Diphenhydramine HCl (Benadryl) 25 mg IM/IV Q3H PRN PRN Reason: Itching Diphenhydramine HCl (Benadryl) 25 mg PO Q3H PRN PRN Reason: Itching Dronedarone ([place]) 400 mg PO BID[facility] Gabapentin (Neurontin) 100 mg PO BID [facility] Last Admin: 04/22/19 08:54 Dose: 100 mg Diltiazem HCl 125 mg/ Sodium (Chloride) 125 mls @ 2.5 mls/hr IVPB INF [facility]; Protocol Lorazepam (Ativan) 2 mg PO BID PRN PRN Reason: Anxiety Last Admin: 04/21/19 11:18 Dose: 2 mg Metoprolol Succinate (Toprol Xl) 25 mg PO DAILY [facility] Last Admin: 04/22/19 08:55 Dose: 25 mg Naloxone HCl (Narcan) 0.2 mg IV Q5MIN PRN PRN Reason: RR <8 or pt obtun/unarousable Ondansetron HCl (Zofran) 4 mg IVP Q6H PRN PRN Reason: Nausea/Vomiting Last Admin: 04/20/19 21:59 Dose: 4 mg Phosphorus (Kphos Neutral) 250 mg PO TID-WM [facility] Last Admin: 04/22/19 12:26 Dose: 250 mg Polyethylene Glycol (Miralax) 17 gm PO DAILY [facility] Last Admin: 04/22/19 08:55 Dose: 17 gm Promethazine HCl (Phenergan) 12.5 mg IM Q4H PRN PRN Reason: Nausea/Vomiting Senna/Docusate Sodium (Senokot S) 2 tab PO BID [facility] Last Admin: 04/22/19 08:54 Dose: 2 tab Sodium Chloride (Flush - Normal Saline) 10 ml IVF Q12HR [facility] Last Admin: 04/22/19 09:15 Dose: 10 ml Sodium Chloride (Flush - Normal Saline) 10 ml IVF PRN PRN PRN Reason: Saline Flush Temazepam (Restoril) 15 mg PO HS PRN PRN Reason: Insomnia Temazepam (Restoril) 30 mg PO HS PRN PRN Reason: Insomnia Last Admin: 04/21/19 20:40 Dose: 30 mg Thyroid ([place] Thyroid) 60 mg PO DAILY [facility] Last Admin: 04/22/19 08:55 Dose: 60 mg Tramadol HCl (Ultram) 50 mg PO Q6H PRN PRN Reason: Mild Pain (1-4) Tramadol HCl (Ultram) 100 mg PO Q6H PRN PRN Reason: Moderate to Severe Pain (5-10) Zolpidem Tartrate (Ambien) 5 mg PO HSPRN PRN PRN Reason: Insomnia
[2019-04-22] MEDS: Dronedarone HCl 400 MG TAB PO SCH (17:54)
[2019-04-22] MEDS: Cyclobenzaprine 10 MG TAB PO PRN (19:02)
[2019-04-22] MEDS: Lorazepam 1 MG TAB PO PRN (21:59)
[2019-04-22] MEDS: Calcium Carbonate 500 MG ChewTAB PO PRN (22:00)
[2019-04-22] MEDS: Temazepam 15 MG CAP PO PRN (22:00)
[2019-04-23] MEDS: HYDROcodone/Acetaminophen 10/325 mg Tablet PO PRN ×2 (00:48→11:07)
[2019-04-23] MEDS ORDERED: Sodium Chloride 0.9% 500 ML IV SCH (05:45)
--- NOTE | 2019-04-23 08:19 | PRG ---
DATE OF SERVICE: 04/22/2019 SUBJECTIVE: Ms. Glass is doing better. She is seen sitting up. Her heart rate is better controlled. I added Cardizem short-acting p.o. this morning. She has also been on a beta-tuyet therapy. I have decreased her IV Cardizem to 2.5 mg IV per hour. OBJECTIVE: VITAL SIGNS: Blood pressure 129/59, pulse 78, temperature afebrile. GENERAL: The patient is a pleasant female, who is in no acute distress. The patient appears their stated age. NEUROLOGIC: The patient is alert and oriented x3 with no focal neurologic deficits. HEENT: Sclerae without icterus. Mouth has moist mucous membranes with normal pallor. NECK: No JVD. Carotid upstroke brisk. No bruits bilaterally. LUNGS: Clear to auscultation with unlabored respirations. BACK: No scoliosis or kyphosis. CARDIAC: Irregularly irregular with 2/6 systolic ejection murmur. ABDOMEN: Soft, nontender, nondistended. No peritoneal signs present. No hepatosplenomegaly. No abnormal striae. EXTREMITIES: 2+ femoral and 2+ dorsalis pedis pulses. No cyanosis, clubbing, or edema. SKIN: No gross abnormalities. PERTINENT LABORATORY DATA: Hemoglobin 11.4, potassium 2.9, and creatinine 0.5. IMPRESSION: 1. Atrial fibrillation with rapid ventricular response. 2. Aortic stenosis. RECOMMENDATIONS: At this point, anticoagulation therapy is felt to be prohibitive given recent back surgery. We will continue rate control. I had a long discussion with the daughter today. She had questions about proceeding with cardioversion in addition to proceeding with TAVR. I did state that TAVR did require anti-platelet therapy and cardioversion. 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 Those two are not felt to be appropriate options. We would continue rate control at this point. We will slowly increase her Cardizem and switch to long-acting p.o. once her IV has been discontinued. Job ID: [id number]
[2019-04-23 08:45] LABS: #Eosinphils 0.2 thou/uL (0.0-0.7); #Lymphocytes 2.1 thou/uL (1.20-3.40); #Monocytes 0.8 thou/uL (0.11-0.59); #Neutrophils 3.8 thou/uL (1.40-6.50); %Basophils 0.7 % (0.0-1.0); %Lymphocytes 30.2 % (21.0-51.0); %Neutrophils 55.2 % (42.0-75.0); Hemoglobin 9.2 g/dL (12.0-16.0); Mean Corpuscular HGB CONC 32.6 g/dL (32.0-36.0); Mean Corpuscular Hemoglobin 32.3 pg (27.0-31.0); Mean Corpuscular Volume 99.3 fL (78.0-98.0); Mean Platelet Volume 6.8 fL (7.4-10.4); Platelet Count 271 thou/uL (130-400); RBC Distribution Width 12.2 % (11.5-14.5); Red Blood Cell (RBC) Count 2.84 mill/uL (4.20-5.40); White Blood Cell (WBC) Count 6.8 thou/uL (4.8-10.8)
[2019-04-23 10:40] LABS: BUN (Urea Nitrogen) 9 mg/dL (9.8-20.1); Calc. Creatinine Clearance 47 mL/min (70-130); Calcium 8.7 mg/dL (7.8-10.44); Carbon Dioxide 29 mmol/L (23-31); Chloride 94 mmol/L (98-107); Estimated GFR-MDRD 67; Glucose 92 mg/dL (83-110); Potassium 4.4 mmol/L (3.5-5.1); Sodium 131 mmol/L (136-145)
[2019-04-23] MEDS: Gabapentin 100 MG CAP PO SCH (11:01)
[2019-04-23] MEDS: Thyroid 60 MG TAB PO SCH (11:01)
[2019-04-23] MEDS: Senokot S 8.6-50 MG TAB PO SCH (11:01)
[2019-04-23] MEDS: Polyethylene Glycol 3350 17 GM Packet PO SCH (11:01)
[2019-04-23] MEDS: K-Phos Neutral 250 MG TAB PO SCH ×3 (11:10→17:42)
[2019-04-23 11:22] LABS: Anion Gap 12 mmol/L (10-20)
[2019-04-23] MEDS: Dronedarone HCl 400 MG TAB PO SCH ×2 (13:11→17:53)
--- NOTE | 2019-04-23 14:48 | PDOC.PN ---
- Subjective Encounter Start Date: 04/23/19 Encounter Start Time: 14:47 Pt seen for followup re: hyponatremia. Says she feels well. - Objective MAR Reviewed: Yes Vital Signs & Weight: Vital Signs (12 hours) Temp Pulse Resp BP BP Pulse Ox Pulse Ox 04/23/19 13:10 90 L 04/23/19 12:20 98.0 F 73 16 121/57 L 92 L 04/23/19 07:50 97.4 F L 59 L 12 97/49 L 98 04/23/19 04:00 97.3 F L 56 L 18 87/50 L 96 Pulse Ox Pulse Ox 04/23/19 13:10 79 L 91 L 04/23/19 12:20 04/23/19 07:50 04/23/19 04:00 Weight Weight 119 lb 3.2 oz I&O: 04/22/19 04/23/19 04/24/19 06:59 06:59 06:59 Intake Total 415 1100 Output Total 2500 550 Balance -2085 550 Result Diagrams: 04/23/19 08:37 04/23/19 09:44 EKG Reviewed by me: Yes (Tele: NSR) Phys Exam - Physical Examination Constitutional: NAD HEENT: moist MMs Neck: supple Respiratory: clear to auscultation bilateral Cardiovascular: RRR Gastrointestinal: soft Neurological: moves all 4 limbs Psychiatric: normal affect Dx/Plan (1) Hyponatremia Code(s): E87.1 - HYPO-OSMOLALITY AND HYPONATREMIA Status: Acute Comment: sodium improving, continue free fluid restriction. (2) Acute diastolic CHF (congestive heart failure), NYHA class 3 Code(s): I50.31 - ACUTE DIASTOLIC (CONGESTIVE) HEART FAILURE Status: Acute Comment: Improved, administer furosemide PRN (3) Aortic stenosis Code(s): I35.0 - NONRHEUMATIC AORTIC (VALVE) STENOSIS Status: Chronic Comment: for management as outpatient (4) Hypothyroidism Code(s): E03.9 - HYPOTHYROIDISM, UNSPECIFIED Status: Chronic Comment: continue armor thytoid (5) Atrial fibrillation with RVR Code(s): I48.91 - UNSPECIFIED ATRIAL FIBRILLATION Status: Resolved Comment: Pt cardioverted overnight. No anticoagiulation etc until pt is seen by neurosurgery as outpatient - Plan PT/OT, out of bed/ambulate * . Pt needs Inpt Rehab vs SNU Review of Systems - Review of Systems Cardiovascular: negative: chest pain, palpitations, orthopnea, paroxysmal nocturnal dyspnea, edema, light headedness Gastrointestinal: negative: Nausea, Vomiting, Abdominal Pain, Diarrhea, Constipation, Melena, Hematochezia - Medications/Allergies Allergies/Adverse Reactions: Allergies Allergy/AdvReac Type Severity Reaction Status Date / Time cephalexin [From Keflex] Allergy Hives Verified 04/16/19 14:04 Medications: Current Medications Acetaminophen (Tylenol) 650 mg PO Q4H PRN PRN Reason: Headache/Fever or Pain Last Admin: 04/19/19 15:52 Dose: 650 mg Hydrocodone Bitart/Acetaminophen ([place] 10/325) 1 tab PO Q4H PRN PRN Reason: Mild Pain (1-4) Hydrocodone Bitart/Acetaminophen ([place] 10/325) 2 tab PO Q4H PRN PRN Reason: MILD TO SEVERE PAIN (5-10) Last Admin: 04/23/19 11:07 Dose: 2 tab Calcium Carbonate (Tums) 1,000 mg PO BIDPRN PRN PRN Reason: Indigestion Last Admin: 04/22/19 22:00 Dose: 1,000 mg Clonidine (Catapres) 0.1 mg PO BID PRN PRN Reason: Hypertension Cyclobenzaprine HCl (Flexeril) 10 mg PO BID PRN PRN Reason: Muscle Spasm Last Admin: 04/22/19 19:02 Dose: 10 mg Diltiazem HCl (Cardizem) 60 mg PO Q6HR [facility] Last Admin: 04/23/19 13:10 Dose: Not Given Diphenhydramine HCl (Benadryl) 25 mg IM/IV Q3H PRN PRN Reason: Itching Diphenhydramine HCl (Benadryl) 25 mg PO Q3H PRN PRN Reason: Itching Dronedarone (Multaq) 400 mg PO BID-[facility] Last Admin: 04/23/19 13:11 Dose: Not Given Gabapentin (Neurontin) 100 mg PO BID [facility] Last Admin: 04/23/19 11:01 Dose: 100 mg Lorazepam (Ativan) 2 mg PO BID PRN PRN Reason: Anxiety Last Admin: 04/22/19 21:59 Dose: 2 mg Metoprolol Succinate (Toprol Xl) 25 mg PO DAILY [facility] Last Admin: 04/23/19 13:10 Dose: Not Given Naloxone HCl (Narcan) 0.2 mg IV Q5MIN PRN PRN Reason: RR <8 or pt obtun/unarousable Ondansetron HCl (Zofran) 4 mg IVP Q6H PRN PRN Reason: Nausea/Vomiting Last Admin: 04/20/19 21:59 Dose: 4 mg Phosphorus (Kphos Neutral) 250 mg PO TID-[facility] Last Admin: 04/23/19 13:26 Dose: 250 mg Polyethylene Glycol (Miralax) 17 gm PO DAILY [facility] Last Admin: 04/23/19 11:01 Dose: 17 gm Promethazine HCl (Phenergan) 12.5 mg IM Q4H PRN PRN Reason: Nausea/Vomiting Senna/Docusate Sodium (Senokot S) 2 tab PO BID [facility] Last Admin: 04/23/19 11:01 Dose: 2 tab Sodium Chloride (Flush - Normal Saline) 10 ml IVF Q12HR [facility] Last Admin: 04/23/19 11:09 Dose: 10 ml Sodium Chloride (Flush - Normal Saline) 10 ml IVF PRN PRN PRN Reason: Saline Flush Temazepam (Restoril) 15 mg PO HS PRN PRN Reason: Insomnia Temazepam (Restoril) 30 mg PO HS PRN PRN Reason: Insomnia Last Admin: 04/22/19 22:00 Dose: 30 mg Thyroid ([place] Thyroid) 60 mg PO DAILY [facility] Last Admin: 04/23/19 11:01 Dose: 60 mg Tramadol HCl (Ultram) 50 mg PO Q6H PRN PRN Reason: Mild Pain (1-4) Tramadol HCl (Ultram) 100 mg PO Q6H PRN PRN Reason: Moderate to Severe Pain (5-10) Last Admin: 04/22/19 19:01 Dose: 100 mg Zolpidem Tartrate (Ambien) 5 mg PO HSPRN PRN PRN Reason: Insomnia
[2019-04-23] MEDS: Calcium Carbonate 500 MG ChewTAB PO PRN (17:42)
[2019-04-23] MEDS: Acetaminophen 325 MG TAB PO PRN (17:42)
--- NOTE | 2019-04-23 18:21 | PRG ---
DATE OF SERVICE: 04/23/2019 SUBJECTIVE: I have seen and evaluated Ms. Lazo on 2 separate occasions. I saw her this morning and this afternoon. She was somnolent this morning. She did convert to sinus rhythm. Blood pressure was low given she was continued to be on IV Cardizem. This has been discontinued. She has no current complaints. OBJECTIVE: VITAL SIGNS: Blood pressure 120/57, pulse 72, temp 98. LUNGS: Clear to auscultation. HEART: Regular rate and rhythm with 2/6 systolic ejection murmur. ABDOMEN: Soft, nontender, nondistended. EXTREMITIES: No edema. IMPRESSION: 1. Severe aortic stenosis. 2. Paroxysmal atrial fibrillation. RECOMMENDATIONS: I did speak with Dr. Szymanski this morning. We both agreed that anticoagulation therapy is not a good option given recent back surgery. We would have to wait at least two weeks. At this point, given that she is converted back to sinus for atrial fibrillation, likely related to recent surgery. I would discontinue Multaq in addition to Cardizem. We will increase her beta-tuyet from 25 mg q.a.m. to 50 q.a.m. Plan is to follow up in the next [address] Bert Merritt. From my standpoint, she is okay for discharge. Job ID: [id number]
[2019-04-24] MEDS ORDERED: Acetaminophen 325 MG TAB ONE (04:57)
[2019-04-24] MEDS ORDERED: traMADol HCl 50 MG TAB ONE (06:15)
[2019-04-24] MEDS: Dronedarone HCl 400 MG TAB PO SCH ×2 (09:21→18:21)
[2019-04-24] MEDS: K-Phos Neutral 250 MG TAB PO SCH ×3 (09:21→18:21)
[2019-04-24] MEDS: Gabapentin 100 MG CAP PO SCH ×3 (09:21→22:06)
[2019-04-24] MEDS: Senokot S 8.6-50 MG TAB PO SCH ×3 (09:22→22:06)
[2019-04-24] MEDS: Polyethylene Glycol 3350 17 GM Packet PO SCH (09:23)
[2019-04-24 10:32] VITALS: BMI 21.8
[2019-04-24] MEDS: Thyroid 60 MG TAB PO SCH (11:15)
[2019-04-24] MEDS: Acetaminophen 325 MG TAB PO PRN ×3 (13:37→22:06)
--- NOTE | 2019-04-24 14:46 | PDOC.PN ---
- Subjective Encounter Start Date: 04/24/19 Encounter Start Time: 07:40 Pt seen for followup re: hyponatremia. Says she feels better, but weak. - Objective Vital Signs & Weight: Vital Signs (12 hours) Temp Pulse Resp BP BP Pulse Ox 04/24/19 11:52 98.1 F 85 16 163/81 H 91 L 04/24/19 08:00 97.5 F L 88 15 163/74 H 91 L Weight Admit Weight 114 lb Weight 119 lb 3.2 oz I&O: 04/23/19 04/24/19 04/25/19 06:59 06:59 06:59 Intake Total 1100 Output Total 550 Balance 550 Result Diagrams: 04/23/19 08:37 04/23/19 09:44 Phys Exam - Physical Examination Constitutional: NAD HEENT: moist MMs Neck: supple Kalin crackles Cardiovascular: RRR Gastrointestinal: soft Neurological: moves all 4 limbs Psychiatric: normal affect Dx/Plan (1) Hyponatremia Code(s): E87.1 - HYPO-OSMOLALITY AND HYPONATREMIA Status: Acute Comment: Improving, continue free fluid restriction. (2) Acute diastolic CHF (congestive heart failure), NYHA class 3 Code(s): I50.31 - ACUTE DIASTOLIC (CONGESTIVE) HEART FAILURE Status: Acute Comment: Improved (3) Aortic stenosis Code(s): I35.0 - NONRHEUMATIC AORTIC (VALVE) STENOSIS Status: Chronic Comment: for management as outpatient (4) Hypothyroidism Code(s): E03.9 - HYPOTHYROIDISM, UNSPECIFIED Status: Chronic Comment: continue thyroid replacement (5) Atrial fibrillation with RVR Code(s): I48.91 - UNSPECIFIED ATRIAL FIBRILLATION Status: Resolved Comment: No anticoagiulation etc until pt is seen by neurosurgery as outpatient - Plan * . Review of Systems - Review of Systems Constitutional: weakness Respiratory: SOB with Excertion. negative: Cough, Shortness of Breath, Pleuritic Pain, Wheezing Cardiovascular: negative: chest pain, palpitations, orthopnea, paroxysmal nocturnal dyspnea, edema, light headedness - Medications/Allergies Allergies/Adverse Reactions: Allergies Allergy/AdvReac Type Severity Reaction Status Date / Time cephalexin [From Keflex] Allergy Hives Verified 04/16/19 14:04 Medications: Current Medications Acetaminophen (Tylenol) 650 mg PO Q4H PRN PRN Reason: Headache/Fever or Pain Last Admin: 04/24/19 13:37 Dose: 650 mg Hydrocodone Bitart/Acetaminophen ([place] 10/325) 1 tab PO Q4H PRN PRN Reason: Mild Pain (1-4) Hydrocodone Bitart/Acetaminophen ([place] 10/325) 2 tab PO Q4H PRN PRN Reason: MILD TO SEVERE PAIN (5-10) Last Admin: 04/23/19 11:07 Dose: 2 tab Calcium Carbonate (Tums) 1,000 mg PO BIDPRN PRN PRN Reason: Indigestion Last Admin: 04/23/19 17:42 Dose: 1,000 mg Clonidine (Catapres) 0.1 mg PO BID PRN PRN Reason: Hypertension Cyclobenzaprine HCl (Flexeril) 10 mg PO BID PRN PRN Reason: Muscle Spasm Last Admin: 04/22/19 19:02 Dose: 10 mg Diphenhydramine HCl (Benadryl) 25 mg IM/IV Q3H PRN PRN Reason: Itching Diphenhydramine HCl (Benadryl) 25 mg PO Q3H PRN PRN Reason: Itching Dronedarone (Multaq) 400 mg PO BID-[facility] Last Admin: 04/24/19 09:21 Dose: 400 mg Gabapentin (Neurontin) 100 mg PO BID [facility] Last Admin: 04/24/19 10:00 Dose: Not Given Lorazepam (Ativan) 2 mg PO BID PRN PRN Reason: Anxiety Last Admin: 04/22/19 21:59 Dose: 2 mg Metoprolol Succinate (Toprol Xl) 25 mg PO DAILY [facility] Last Admin: 04/24/19 09:22 Dose: 25 mg Naloxone HCl (Narcan) 0.2 mg IV Q5MIN PRN PRN Reason: RR <8 or pt obtun/unarousable Ondansetron HCl (Zofran) 4 mg IVP Q6H PRN PRN Reason: Nausea/Vomiting Last Admin: 04/20/19 21:59 Dose: 4 mg Phosphorus (Kphos Neutral) 250 mg PO TID-[facility] Last Admin: 04/24/19 13:27 Dose: 250 mg Polyethylene Glycol (Miralax) 17 gm PO DAILY [facility] Last Admin: 04/24/19 09:23 Dose: Not Given Promethazine HCl (Phenergan) 12.5 mg IM Q4H PRN PRN Reason: Nausea/Vomiting Senna/Docusate Sodium (Senokot S) 2 tab PO BID [facility] Last Admin: 04/24/19 10:00 Dose: Not Given Sodium Chloride (Flush - Normal Saline) 10 ml IVF Q12HR [facility] Last Admin: 04/24/19 10:00 Dose: Not Given Sodium Chloride (Flush - Normal Saline) 10 ml IVF PRN PRN PRN Reason: Saline Flush Temazepam (Restoril) 15 mg PO HS PRN PRN Reason: Insomnia Temazepam (Restoril) 30 mg PO HS PRN PRN Reason: Insomnia Last Admin: 04/22/19 22:00 Dose: 30 mg Thyroid ([place] Thyroid) 60 mg PO DAILY [facility] Last Admin: 04/24/19 11:15 Dose: 60 mg Tramadol HCl (Ultram) 50 mg PO Q6H PRN PRN Reason: Mild Pain (1-4) Tramadol HCl (Ultram) 100 mg PO Q6H PRN PRN Reason: Moderate to Severe Pain (5-10) Last Admin: 04/22/19 19:01 Dose: 100 mg Zolpidem Tartrate (Ambien) 5 mg PO HSPRN PRN PRN Reason: Insomnia
[2019-04-24 15:45] LABS: #Basophils 0.1 thou/uL (0.0-0.2); #Lymphocytes 1.1 thou/uL (1.20-3.40); #Monocytes 0.6 thou/uL (0.11-0.59); #Neutrophils 6.3 thou/uL (1.40-6.50); %Basophils 0.9 % (0.0-1.0); %Eosinophils 0.3 % (0.0-10.0); %Lymphocytes 13.5 % (21.0-51.0); %Neutrophils 78.3 % (42.0-75.0); Hemoglobin 10.7 g/dL (12.0-16.0); Mean Corpuscular Hemoglobin 32.2 pg (27.0-31.0); Mean Corpuscular Volume 97.7 fL (78.0-98.0); Mean Platelet Volume 6.8 fL (7.4-10.4); Platelet Count 330 thou/uL (130-400); RBC Distribution Width 12.2 % (11.5-14.5); Red Blood Cell (RBC) Count 3.33 mill/uL (4.20-5.40)
[2019-04-24 16:02] LABS: Anion Gap 14 mmol/L (10-20); BUN (Urea Nitrogen) 6 mg/dL (9.8-20.1); Calc. Creatinine Clearance 59 mL/min (70-130); Calcium 8.7 mg/dL (7.8-10.44); Carbon Dioxide 29 mmol/L (23-31); Chloride 92 mmol/L (98-107); Estimated GFR-MDRD 88; Glucose 128 mg/dL (83-110); Potassium 3.6 mmol/L (3.5-5.1); Sodium 131 mmol/L (136-145)
--- NOTE | 2019-04-24 23:21 | PDOC.EVN ---
Event Note - Event Note Event Note: Patient went back into afib with RVR; restarted Cardizem gtt and will re consult cardiology
[2019-04-24] MEDS: traMADol HCl 50 MG TAB PO PRN (23:24)
[2019-04-24] MEDS ORDERED: Diltiazem 125 MG in Sodium Chloride 0.9% 100 ML IVPB SCH (23:45)
[2019-04-25] MEDS: Polyethylene Glycol 3350 17 GM Packet PO SCH (08:41)
[2019-04-25] MEDS: Gabapentin 100 MG CAP PO SCH ×2 (08:42→20:43)
[2019-04-25] MEDS: Dronedarone HCl 400 MG TAB PO SCH ×2 (08:42→15:50)
[2019-04-25] MEDS: K-Phos Neutral 250 MG TAB PO SCH ×3 (08:42→15:50)
[2019-04-25] MEDS: Thyroid 60 MG TAB PO SCH (08:42)
[2019-04-25] MEDS: Senokot S 8.6-50 MG TAB PO SCH (08:42)
[2019-04-25 10:19] LABS: #Basophils 0.1 thou/uL (0.0-0.2); #Monocytes 0.4 thou/uL (0.11-0.59); %Basophils 0.8 % (0.0-1.0); %Eosinophils 0.2 % (0.0-10.0); %Lymphocytes 13.1 % (21.0-51.0); %Monocytes 5.4 % (0.0-10.0); %Neutrophils 80.6 % (42.0-75.0); Hemoglobin 12.6 g/dL (12.0-16.0); Mean Corpuscular HGB CONC 33.1 g/dL (32.0-36.0); Mean Corpuscular Hemoglobin 32.3 pg (27.0-31.0); Mean Corpuscular Volume 97.7 fL (78.0-98.0); Mean Platelet Volume 6.8 fL (7.4-10.4); Platelet Count 393 thou/uL (130-400); RBC Distribution Width 12.5 % (11.5-14.5); White Blood Cell (WBC) Count 7.4 thou/uL (4.8-10.8)
[2019-04-25 10:38] LABS: Anion Gap 15 mmol/L (10-20); BUN (Urea Nitrogen) 7 mg/dL (9.8-20.1); Calc. Creatinine Clearance 55 mL/min (70-130); Calcium 9.4 mg/dL (7.8-10.44); Carbon Dioxide 29 mmol/L (23-31); Chloride 91 mmol/L (98-107); Estimated GFR-MDRD 83; Glucose 152 mg/dL (83-110); Magnesium 1.6 mg/dL (1.6-2.6); Phosphorus 3.2 mg/dL (2.3-4.7); Potassium 3.1 mmol/L (3.5-5.1); Sodium 132 mmol/L (136-145)
[2019-04-25] MEDS ORDERED: Magnesium 2 GM/50 ML 2 GM in Premix Bag 1 BAG IVPB SCH ×2 (12:15→15:45)
[2019-04-25] MEDS ORDERED: Potassium Chloride 10 MEQ TAB PO SCH ×2 (12:15→17:00)
--- NOTE | 2019-04-25 13:21 | PRG ---
DATE OF SERVICE: SUBJECTIVE: Ms. Glass went back in atrial fibrillation overnight. Minimal symptoms present. OBJECTIVE: VITAL SIGNS: Blood pressure 140/74, pulse 90, and temperature afebrile. She is currently on IV Cardizem at 10 mg/hour. LUNGS: Clear to auscultation. HEART: Irregularly irregular, 2/6 systolic ejection murmur. ABDOMEN: Soft, nontender, and nondistended. EXTREMITIES: No edema. PERTINENT LABORATORY DATA: Hemoglobin 12.6. Potassium 3.1 and creatinine 0.67. IMPRESSION: 1. Paroxysmal atrial fibrillation. 2. Severe aortic stenosis. 3. Recent laminectomy. RECOMMENDATIONS: 1. Continue Multaq. 2. Add p.o. Cardizem at 30 mg q.6 hours. 3. We would likely recommend anticoagulation therapy two weeks after laminectomy. She likely has paroxysmal atrial fibrillation at home, that has been undiagnosed. She agreed. Dr. Bryant will see in my absence. Job ID: [id number]
[2019-04-25] MEDS: Acetaminophen 325 MG TAB PO PRN (15:49)
[2019-04-25] MEDS ORDERED: Senokot S 8.6-50 MG TAB PO PRN (15:58)
--- NOTE | 2019-04-25 17:42 | PDOC.PN ---
- Subjective Encounter Start Date: 04/25/19 Encounter Start Time: 16:00 Patient seen and examined for med mngt. Developed Afib with RVR last night - restarted on Cardizem drip. No CP/SOB. No new complaints. No overnight events - Objective MAR Reviewed: Yes Vital Signs & Weight: Vital Signs (12 hours) Temp Pulse Resp BP Pulse Ox 04/25/19 16:00 97.8 F 62 18 147/68 H 96 04/25/19 12:00 97.7 F 90 18 140/74 94 L 04/25/19 07:42 98.6 F 121 H 16 141/73 H 93 L Weight Admit Weight 114 lb Weight 116 lb 14.4 oz I&O: 04/24/19 04/25/19 04/26/19 06:59 06:59 06:59 Intake Total 1200 Output Total 5275 Balance -4075 Result Diagrams: 04/25/19 10:07 04/25/19 10:07 EKG Reviewed by me: Yes (Tele Afib ) Phys Exam - Physical Examination Constitutional: NAD Respiratory: no wheezing, no rhonchi Cardiovascular: no rub, irregular Gastrointestinal: soft, non-tender, positive bowel sounds Neurological: moves all 4 limbs Dx/Plan - Plan DVT proph w/SCDs IMPRESSION: 1. Atrial fibrillation with RVR 2. Hypokalemia/Hypomagnesemia 3. Severe 4. 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 Hypertension. 6. Hypothyroidism 7. Acute diastolic HF 8. Anxiety/Chronic insomnia. Plan: PO Cardizem started Cont Toprol XL Wean Cardizem drip Replace Potassium and Magnessium Cont other meds as below DC Garza - check post void Laboratory Tests 04/25/19 10:07 Potassium 3.1 L Magnesium 1.6 Review of Systems - Review of Systems Respiratory: negative: Cough, Dry, Shortness of Breath, Hemoptysis, SOB with Excertion, Pleuritic Pain, Sputum, Wheezing Cardiovascular: negative: chest pain, palpitations, orthopnea, paroxysmal nocturnal dyspnea, edema, light headedness, other Gastrointestinal: negative: Nausea, Vomiting, Abdominal Pain, Diarrhea, Constipation, Melena, Hematochezia, Other - Medications/Allergies Allergies/Adverse Reactions: Allergies Allergy/AdvReac Type Severity Reaction Status Date / Time cephalexin [From Keflex] Allergy Hives Verified 04/16/19 14:04 Medications: Current Medications Acetaminophen (Tylenol) 650 mg PO Q4H PRN PRN Reason: Headache/Fever or Pain Last Admin: 04/25/19 15:49 Dose: 650 mg Hydrocodone Bitart/Acetaminophen ([place] 10/325) 1 tab PO Q4H PRN PRN Reason: Mild Pain (1-4) Hydrocodone Bitart/Acetaminophen ([place] 10/325) 2 tab PO Q4H PRN PRN Reason: MILD TO SEVERE PAIN (5-10) Last Admin: 04/23/19 11:07 Dose: 2 tab Calcium Carbonate (Tums) 1,000 mg PO BIDPRN PRN PRN Reason: Indigestion Last Admin: 04/23/19 17:42 Dose: 1,000 mg Clonidine (Catapres) 0.1 mg PO BID PRN PRN Reason: Hypertension Cyclobenzaprine HCl (Flexeril) 10 mg PO BID PRN PRN Reason: Muscle Spasm Last Admin: 04/22/19 19:02 Dose: 10 mg Diltiazem HCl (Cardizem) 30 mg PO Q6HR [facility] Diphenhydramine HCl (Benadryl) 25 mg PO Q3H PRN PRN Reason: Itching Dronedarone (Multaq) 400 mg PO BID-[facility] Last Admin: 04/25/19 15:50 Dose: 400 mg Gabapentin (Neurontin) 100 mg PO BID [facility] Last Admin: 04/25/19 08:42 Dose: 100 mg Lorazepam (Ativan) 2 mg PO BID PRN PRN Reason: Anxiety Last Admin: 04/22/19 21:59 Dose: 2 mg Metoprolol Succinate (Toprol Xl) 25 mg PO DAILY [facility] Last Admin: 04/25/19 08:42 Dose: 25 mg Naloxone HCl (Narcan) 0.2 mg IV Q5MIN PRN PRN Reason: RR <8 or pt obtun/unarousable Ondansetron HCl (Zofran) 4 mg IVP Q6H PRN PRN Reason: Nausea/Vomiting Last Admin: 04/20/19 21:59 Dose: 4 mg Phosphorus (Kphos Neutral) 250 mg PO TID-[facility] Stop: 04/25/19 23:59 Last Admin: 04/25/19 15:50 Dose: 250 mg Polyethylene Glycol (Miralax) 17 gm PO DAILY [facility] Last Admin: 04/25/19 08:41 Dose: Not Given Potassium Chloride (Klor-Con 10) 20 meq PO BID-[facility] Last Admin: 04/25/19 15:50 Dose: 20 meq Senna/Docusate Sodium (Senokot S) 1 tab PO BID PRN PRN Reason: Constipation Sodium Chloride (Flush - Normal Saline) 10 ml IVF Q12HR [facility] Last Admin: 04/25/19 08:43 Dose: 10 ml Sodium Chloride (Flush - Normal Saline) 10 ml IVF PRN PRN PRN Reason: Saline Flush Temazepam (Restoril) 15 mg PO HS PRN PRN Reason: Insomnia Temazepam (Restoril) 30 mg PO HS PRN PRN Reason: Insomnia Last Admin: 04/22/19 22:00 Dose: 30 mg Thyroid ([place] Thyroid) 60 mg PO DAILY [facility] Last Admin: 04/25/19 08:42 Dose: 60 mg Tramadol HCl (Ultram) 50 mg PO Q6H PRN PRN Reason: Mild Pain (1-4) Last Admin: 04/24/19 23:24 Dose: 50 mg Tramadol HCl (Ultram) 100 mg PO Q6H PRN PRN Reason: Moderate to Severe Pain (5-10) Last Admin: 04/22/19 19:01 Dose: 100 mg Zolpidem Tartrate (Ambien) 5 mg PO HSPRN PRN PRN Reason: Insomnia
[2019-04-25] MEDS: traMADol HCl 50 MG TAB PO PRN (20:48)
[2019-04-26] MEDS: traMADol HCl 50 MG TAB PO PRN (01:59)
[2019-04-26] MEDS: Cyclobenzaprine 10 MG TAB PO PRN ×2 (03:24→16:34)
[2019-04-26] MEDS: HYDROcodone/Acetaminophen 10/325 mg Tablet PO PRN ×4 (05:38→20:37)
[2019-04-26 06:41] LABS: Anion Gap 13 mmol/L (10-20); BUN (Urea Nitrogen) 8 mg/dL (9.8-20.1); Calc. Creatinine Clearance 53 mL/min (70-130); Calcium 8.7 mg/dL (7.8-10.44); Carbon Dioxide 29 mmol/L (23-31); Chloride 90 mmol/L (98-107); Estimated GFR-MDRD 79; Glucose 107 mg/dL (83-110); Magnesium 2.1 mg/dL (1.6-2.6); Potassium 3.1 mmol/L (3.5-5.1); Sodium 129 mmol/L (136-145)
[2019-04-26] MEDS: Thyroid 60 MG TAB PO SCH (08:48)
[2019-04-26] MEDS: Gabapentin 100 MG CAP PO SCH ×2 (08:49→20:37)
[2019-04-26] MEDS: Polyethylene Glycol 3350 17 GM Packet PO SCH (08:50)
[2019-04-26] MEDS: Dronedarone HCl 400 MG TAB PO SCH ×2 (08:50→16:34)
--- NOTE | 2019-04-26 21:55 | PDOC.PN ---
- Subjective Encounter Start Date: 04/26/19 Encounter Start Time: 10:15 Patient seen and examined for med mngt. No fever/chills. No new complaints. No overnight events - Objective MAR Reviewed: Yes Vital Signs & Weight: Vital Signs (12 hours) Temp Pulse Resp BP Pulse Ox 04/26/19 16:00 98.1 F 72 18 116/68 98 04/26/19 12:00 98.4 F 68 18 157/74 H 98 Weight Admit Weight 114 lb Weight 116 lb 14.4 oz I&O: 04/25/19 04/26/19 04/27/19 06:59 06:59 06:59 Intake Total 1200 850 Output Total 5275 800 Balance -4075 -800 850 Result Diagrams: 04/25/19 10:07 04/27/19 04:57 Additional Labs: Laboratory Tests 04/26/19 06:03 Sodium 129 L Potassium 3.1 L EKG Reviewed by me: Yes (Tele SR) Phys Exam - Physical Examination Constitutional: NAD Respiratory: no wheezing, no rhonchi Cardiovascular: RRR, no rub Gastrointestinal: soft, non-tender, positive bowel sounds Musculoskeletal: no edema Neurological: moves all 4 limbs Dx/Plan - Plan DVT proph w/SCDs IMPRESSION: 1. Atrial fibrillation with RVR - rate controlled 2. Hypokalemia 3.1/Hypomagnesemia 3. Severe 4. 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 Hypertension. 6. Hypothyroidism 7. Acute diastolic HF 8. Anxiety/Chronic insomnia. 9. NSVT - no new episodes Plan: Add fluid restriction for fluid rest Replace Potassium Cont Toprol XL Cont other meds as below Postvoid residual DC to Rehab in AM if stable Review of Systems - Review of Systems Respiratory: negative: Cough, Dry, Shortness of Breath, Hemoptysis, SOB with Excertion, Pleuritic Pain, Sputum, Wheezing Cardiovascular: negative: chest pain, palpitations, orthopnea, paroxysmal nocturnal dyspnea, edema, light headedness, other Gastrointestinal: negative: Nausea, Vomiting, Abdominal Pain, Diarrhea, Constipation, Melena, Hematochezia, Other - Medications/Allergies Allergies/Adverse Reactions: Allergies Allergy/AdvReac Type Severity Reaction Status Date / Time cephalexin [From Keflex] Allergy Hives Verified 04/16/19 14:04 Medications: Current Medications Acetaminophen (Tylenol) 650 mg PO Q4H PRN PRN Reason: Headache/Fever or Pain Last Admin: 04/25/19 15:49 Dose: 650 mg Hydrocodone Bitart/Acetaminophen ([place] 10/325) 1 tab PO Q4H PRN PRN Reason: Mild Pain (1-4) Last Admin: 04/26/19 16:35 Dose: 1 tab Hydrocodone Bitart/Acetaminophen ([place] 10/325) 2 tab PO Q4H PRN PRN Reason: MILD TO SEVERE PAIN (5-10) Last Admin: 04/26/19 20:37 Dose: 2 tab Calcium Carbonate (Tums) 1,000 mg PO BIDPRN PRN PRN Reason: Indigestion Last Admin: 04/23/19 17:42 Dose: 1,000 mg Clonidine (Catapres) 0.1 mg PO BID PRN PRN Reason: Hypertension Cyclobenzaprine HCl (Flexeril) 10 mg PO BID PRN PRN Reason: Muscle Spasm Last Admin: 04/26/19 16:34 Dose: 10 mg Diltiazem HCl (Cardizem) 30 mg PO Q6HR [facility] Last Admin: 04/26/19 16:34 Dose: 30 mg Diphenhydramine HCl (Benadryl) 25 mg PO Q3H PRN PRN Reason: Itching Dronedarone (Multaq) 400 mg PO BID-[facility] Last Admin: 04/26/19 16:34 Dose: 400 mg Gabapentin (Neurontin) 100 mg PO BID [facility] Last Admin: 04/26/19 20:37 Dose: 100 mg Lorazepam (Ativan) 2 mg PO BID PRN PRN Reason: Anxiety Last Admin: 04/22/19 21:59 Dose: 2 mg Metoprolol Succinate (Toprol Xl) 25 mg PO DAILY [facility] Last Admin: 04/26/19 08:49 Dose: 25 mg Ondansetron HCl (Zofran) 4 mg IVP Q6H PRN PRN Reason: Nausea/Vomiting Last Admin: 04/20/19 21:59 Dose: 4 mg Polyethylene Glycol (Miralax) 17 gm PO DAILY [facility] Last Admin: 04/26/19 08:50 Dose: Not Given Potassium Chloride (Klor-Con) 20 meq PO TID-[facility] Last Admin: 04/26/19 16:34 Dose: 20 meq Senna/Docusate Sodium (Senokot S) 1 tab PO BID PRN PRN Reason: Constipation Sodium Chloride (Flush - Normal Saline) 10 ml IVF Q12HR [facility] Last Admin: 04/26/19 20:38 Dose: 10 ml Sodium Chloride (Flush - Normal Saline) 10 ml IVF PRN PRN PRN Reason: Saline Flush Temazepam (Restoril) 15 mg PO HS PRN PRN Reason: Insomnia Temazepam (Restoril) 30 mg PO HS PRN PRN Reason: Insomnia Last Admin: 04/22/19 22:00 Dose: 30 mg Thyroid ([place] Thyroid) 60 mg PO DAILY [facility] Last Admin: 04/26/19 08:48 Dose: 60 mg Tramadol HCl (Ultram) 50 mg PO Q6H PRN PRN Reason: Mild Pain (1-4) Last Admin: 04/26/19 01:59 Dose: 50 mg Tramadol HCl (Ultram) 100 mg PO Q6H PRN PRN Reason: Moderate to Severe Pain (5-10) Last Admin: 04/22/19 19:01 Dose: 100 mg Zolpidem Tartrate (Ambien) 5 mg PO HSPRN PRN PRN Reason: Insomnia
[2019-04-27 05:30] LABS: Anion Gap 10 mmol/L (10-20); BUN (Urea Nitrogen) 13 mg/dL (9.8-20.1); Calc. Creatinine Clearance 46 mL/min (70-130); Calcium 8.6 mg/dL (7.8-10.44); Carbon Dioxide 31 mmol/L (23-31); Chloride 94 mmol/L (98-107); Estimated GFR-MDRD 67; Glucose 90 mg/dL (83-110); Potassium 4.5 mmol/L (3.5-5.1); Sodium 130 mmol/L (136-145)
[2019-04-27] MEDS: Cyclobenzaprine 10 MG TAB PO PRN (05:50)
[2019-04-27] MEDS: Polyethylene Glycol 3350 17 GM Packet PO SCH (08:51)
[2019-04-27] MEDS: Gabapentin 100 MG CAP PO SCH (08:51)
[2019-04-27] MEDS: Thyroid 60 MG TAB PO SCH (08:51)
[2019-04-27] MEDS: Dronedarone HCl 400 MG TAB PO SCH ×2 (08:51→16:15)
[2019-04-27 12:44] VITALS: TEMP 99.5
[2019-04-27 16:14] VITALS: BP 117/57
--- NOTE | 2019-04-28 14:01 | DIS ---
DATE OF ADMISSION: 04/16/2019 DATE OF DISCHARGE: 04/27/2019 DISCHARGE DISPOSITION: Inpatient rehabilitation. DISCHARGE MEDICATIONS: 1. Clonidine 0.1 mg twice daily as needed. 2. Lorazepam 2 mg b.i.d. 3. Temazepam 30 mg at bedtime. 4. [place] Thyroid 60 mg daily. 5. Cardizem 30 mg every six hourly. 6. Tylenol as needed. 7. Flexeril as needed. 8. Multaq 400 mg b.i.d. 9. Neurontin 100 mg b.i.d. 10. Toprol-XL 25 mg daily. 11. MiraLAX 17 g daily. 12. Senokot-S as needed. 13. Tramadol as needed. INPATIENT CONSULTANTS: 1. Hospitalist Service for medical management. 2. Cardiology, Bert Merritt MD. PRIMARY ATTENDING: Neurosurgery, Kvng Govea MD BRIEF HOSPITAL COURSE: The patient is an 78-year-old female, who was admitted on April 16, 2019, by Neurosurgery for intervention for L4 fracture with underlying spondylolisthesis at L4-L5 and likely critical canal encroachment. She underwent MRI on April 16, 2019, that showed anterolisthesis of the L4 on L5 with inferior L4 endplate edema and vertebral body signal changes. She underwent lumbar laminectomy by Dr. Govea, this hospitalization. Prior to surgery, the patient underwent echocardiogram that showed ejection fraction of 60% to 65% with grade 2 of 3 diastolic dysfunction, mild concentric left ventricular hypertrophy, mild tricuspid regurgitation, moderate pulmonic regurgitation, [id number] aortic regurgitation with severe aortic valve stenosis measuring 0.4, mean gradient of 48. Maximum velocity 4.6 m/sec. Postoperatively, the patient developed atrial fibrillation with rapid ventricular response. She was started on Cardizem drip, which was later weaned off. Multaq was started by Cardiology. No anticoagulation due to recent surgical intervention. Cardiology suggested to resume anticoagulation after 2 weeks. Primary care physician advised to follow. She converted to sinus rhythm. However, next day, she converted back to atrial fibrillation with RVR. Cardizem 30 mg every 6 hourly was added for this reason. She is currently in sinus rhythm. The patient also had multiple electrolyte abnormalities, which has been replaced. She also has a history of chronic SIADH with chronic hyponatremia. Lowest sodium this admission was 129 that improved to 132 with fluid restriction. She was advised to continue fluid restriction. FINAL DIAGNOSES: 1. Status post lumbar laminectomy for L4 fracture. 2. Severe aortic stenosis. 3. Atrial fibrillation with rapid ventricular response, converted to sinus rhythm. 4. Hypokalemia. 5. Hypomagnesemia. 6. Hypophosphatemia. 7. Acute on chronic hyponatremia secondary to syndrome of inappropriate antidiuretic hormone secretion. 8. Hypertension. 9. Hypothyroidism. 10. Acute mild diastolic heart failure precipitated by rapid ventricular response, improved. 11. Anxiety. 12. Chronic insomnia. 13. One episode of nonsustained ventricular tachycardia, probably due to electrolyte abnormalities. 14. Thnb-px-hynjqlsd mitral regurgitation. 15. Mild tricuspid regurgitation. 16. Moderate pulmonic regurgitation. 17. Qbec-wh-djisgbfl aortic regurgitation. TIME SPENT: Total time coordinating the discharge of this patient was 37 minutes. Job ID: [id number]
--- NOTE | 2019-04-29 09:51 | OP ---
DATE OF PROCEDURE: 04/18/2019 PREPROCEDURE DIAGNOSES: Lumbar stenosis with lumbar spondylolisthesis, acute worsening of lumbar radiculopathy. POSTPROCEDURE DIAGNOSES: Lumbar stenosis with lumbar spondylolisthesis, acute worsening of lumbar radiculopathy. APPLICATION TESTER: Ezekiel Dill PA-C PROCEDURES PERFORMED: 1. L4-L5 laminectomy, partial facetectomy, and foraminotomy. 2. Left L4-L5 transfacet approach for decompression of the exiting left L4 nerve root due to foraminal and far-lateral disk extrusion. 3. L4-L5 in-situ fusion posterior lateral with local bone autograft obtained at the same incision allograft. DESCRIPTION OF PROCEDURE: After informed consent was obtained from the patient, the patient was brought to the OR. Proper patient, pause, and identification were carried out. She was placed under excellent endotracheal anesthesia and positioned prone on the OR table. All appropriate points were padded. We identified the L4-L5 dorsal spines and lamina. Linear ravi was made. This region was sterilely cleansed, prepared, and draped. Proper patient, pause, and identification were carried out. The wound was then opened with a combination of sharp, monopolar, and blunt dissection. The L4-L5 laminectomy was then performed with partial facetectomy, foraminotomy, and left transfacet approach for the L4 segment of the L4 root with removal of lateral and far-lateral disk material. We then did an L4-L5 in-situ fusion of posterolateral regions following decortication of the posterolateral regions. This allowed for in-situ fusion over the L4-L5 segment to promote stability. Copious irrigation occurred throughout as did maximizing hemostasis. The wound was then closed in anatomic layers. There was no spinal fluid leak. The patient emerged from anesthesia. Job ID: [id number]
== END 2019-04-27 17:33 | DRG 459 ==
LOC: SURG A 12:16 → 2NO 04-20 09:10
PROVIDERS: ADMIT Surgery; ATTEND Surgery
PROC: 0SG0071 Fusion of Lumbar Vertebral Joint with Autologous Tissue Substitute, Posterior Approach, Posterior Column, Open Approach (ICD-10-PCS; principal; 2019-04-18)
DX: M43.16 Spondylolisthesis, lumbar region (principal); I50.31 Acute diastolic (congestive) heart failure; M84.48XA Pathological fracture, other site, initial encounter for fracture; E22.2 Syndrome of inappropriate secretion of antidiuretic hormone; I10 Essential (primary) hypertension; F41.9 Anxiety disorder, unspecified; E03.9 Hypothyroidism, unspecified; G47.00 Insomnia, unspecified; M48.01 Spinal stenosis, occipito-atlanto-axial region; I35.0 Nonrheumatic aortic (valve) stenosis; I48.91 Unspecified atrial fibrillation; E87.6 Hypokalemia; E83.42 Hypomagnesemia; Z90.49 Acquired absence of other specified parts of digestive tract; Z79.899 Other long term (current) drug therapy; Z88.5 Allergy status to narcotic agent
CPT/HCPCS: 36415; 71045; 71046; 72148; 76000; 80048; 80069; 82436; 82553; 82570; 83735; 83880; 83930; 83935; 84100; 84133; 84300; 84443; 84484; 85014; 85018; 85025; 85048; 85049; 85610; 85730; 93005; 93010; 93306; J1100; J1940; J1956; J2001; J2060; J2370; J2405; J2704; J3010; J3370; J3475; J3480; J3490; L0639; Q0163

== ENCOUNTER 2019-06-19 14:17 | Outpatient (CLI) | payer MEDICARE ==
[~2019-06-19 14:17] MED LIST changes: -ISOVUE-370 76%-LOCM 1 ML ONE; +Lidocaine 2% PF 100 mg/5 ml Syringe ONE; +Sodium Chloride 0.9% 15 ML NEB ONE
--- NOTE | 2019-06-19 15:26 | PRG ---
DATE OF SERVICE: 06/19/2019 HISTORY: Ms. Bee Glass is a very pleasant 79-year-old, accompanied by one of her daughters, who presents to the [facility] for evaluation of a nonhealing surgical wound of the back in the midline subsequent to laminectomy by Dr. Kvng Govea on 04/18/2019. The patient's daughter who is a dialysis nurse states that 2 days after surgery, the wound looked "fine." She stated that 6 weeks after surgery at the time of a followup visit, eschar was associated with the wound, and the patient was instructed to cover the wound on a daily basis with a dry dressing. The patient's daughter states that 3 days later, the wound markedly worsened in its appearance. The patient's daughter stated that Ms. Glass was seen by Neurosurgery on 2 occasions after the wound had markedly worsened in its appearance. She stated that Ms. Glass was placed on a course of Keflex for 2 weeks. Arrangements for dressing changes with the assistance of Home Health were also made. Arrangements for Home Health and p.o. antibiotics were made by Dr. Govea at the time of the second visit, after worsening in the appearance of the wound, the patient was referred to the Wound Center by Dr. Govea on 05/30/2019. After being seen in the Wound Center, the patient was placed on dressing changes of Santyl on a daily basis after cleansing and irrigation again with the assistance of Home Health. PHYSICAL EXAMINATION: VITAL SIGNS: Temperature 97.6, pulse 63, respirations 18, blood pressure 152/65. EXTREMITIES: A wound of the back in the midline is present which measures approximately 3.4 x 0.8 cm. The wound has divided into 3 wounds with the largest measuring 1.4 x 0.7 cm. A tunnel at the 12 o'clock position is associated with the wound which is approximately 1.1 cm in length. Granulation tissue is visible within the wound margins. No purulent drainage is associated with the wound. No cellulitis of the lower back is appreciated. No maceration of the skin of the periwound is noted. ASSESSMENT AND PLAN: 1. Nonhealing surgical wound of the lower back in the midline subsequent to lumbar laminectomy on 04/18/[address] Kvng Govea. Dressing changes of Santyl in conjunction with plain packing strips will be continued on a daily basis after cleansing and irrigation with the assistance of Home Health and the patient's daughters who are both nurses. Gauze and tape or bordered gauze will be utilized at the time of dressing changes as secondary dressings. I will see Ms. Glass again in 2 weeks. 2. History of hypertension. 3. Hypothyroidism. 4. Aortic stenosis. 5. History of atrial fibrillation. Job ID: [id number]
== END 2019-06-19 14:18 | disposition home or self-care (01) ==
LOC: WCC 14:17
PROVIDERS: ATTEND Family Medicine
DX: T81.89XD Other complications of procedures, not elsewhere classified, subsequent encounter (principal); E03.9 Hypothyroidism, unspecified; I35.0 Nonrheumatic aortic (valve) stenosis; I10 Essential (primary) hypertension; Z86.79 Personal history of other diseases of the circulatory system
CPT/HCPCS: 97602; A4218; J2001

== ENCOUNTER 2019-07-03 11:49 | Outpatient (CLI) | payer MEDICARE ==
[~2019-07-03 11:49] MED LIST changes: -Lidocaine 2% PF 100 mg/5 ml Syringe ONE
--- NOTE | 2019-07-03 17:08 | PRG ---
DATE OF SERVICE: 07/03/2019 HISTORY: Ms. Bee Glass is a very pleasant 79-year-old, accompanied by one of her daughters, who presents to the Wound Center for evaluation of a nonhealing surgical wound of the back in the midline subsequent to laminectomy by Dr. Kvng Govea on 04/18/2019. The patient's daughter, who is a dialysis nurse states that 2 days after surgery the wound looked "fine." She stated that 6 weeks after surgery at the time of a followup visit, eschar was associated with the wound and the patient was instructed to cover the wound on a daily basis with a dry dressing. The patient's daughter stated that 3 days later, the wound markedly worsened in its appearance. The patient's daughter stated that Ms. Glass was seen by Neurosurgery on 2 occasions after the wound had markedly worsened in its appearance. She stated that Ms. Glass was placed on a course of Keflex for 2 weeks. Arrangements for dressing changes with the assistance of Home Health were also made. Arrangements for Home Health and p.o. antibiotics were made by Dr. Govea at the time of the second visit after worsening in the appearance of the wound. The patient was referred to the Wound Center by Dr. Govea on 05/30/2019. After being seen in the Wound Center, the patient was placed on dressing changes of Santyl on a daily basis after cleansing and irrigation again with the assistance of Home Health. OBJECTIVE: VITAL SIGNS: Temperature 97.9, pulse 75, respirations 17, blood pressure 150/66. EXTREMITIES: A wound of the back in the midline is present, which measures approximately 3.6 x 0.8 cm. The wound has divided into 3 wounds. A tunnel at the 12 o'clock position is associated with the wound and is approximately 1.5 cm in length. Granulation tissue is visible within the wound margins. No purulent drainage is associated with the wound. No erythema of the skin surrounding the wound is present. No maceration of the skin of the periwound is noted. ASSESSMENT AND PLAN: 1. Nonhealing surgical wound of the lower back in the midline subsequent to lumbar laminectomy on 04/18/[address] Kvng Govea. Dressing changes of Santyl in conjunction with plain packing strips will be continued on a daily basis after cleansing and irrigation with the assistance of Home Health and the patient's daughters, who are both nurses. Gauze and tape or bordered gauze will be utilized at the time of dressing changes as secondary dressings. I will see Ms. Glass again in 2 weeks. 2. History of hypertension. 3. Hypothyroidism. 4. Aortic stenosis. 5. History of atrial fibrillation. Job ID: [id number]
== END 2019-07-03 11:50 | disposition home or self-care (01) ==
LOC: WCC 11:49
PROVIDERS: ATTEND Family Medicine
DX: T81.89XD Other complications of procedures, not elsewhere classified, subsequent encounter (principal); E03.9 Hypothyroidism, unspecified; I35.0 Nonrheumatic aortic (valve) stenosis; Z86.79 Personal history of other diseases of the circulatory system
CPT/HCPCS: 97602; A4218

== ENCOUNTER 2019-07-17 11:22 | Outpatient (CLI) | payer MEDICARE ==
--- NOTE | 2019-07-17 12:19 | PRG ---
DATE OF SERVICE: 07/17/2019 HISTORY: Ms. Violet Glass is a very pleasant 79-year-old, accompanied by one of her daughters, who presents to the Wound Center for evaluation of a nonhealing surgical wound of the back in the midline subsequent to laminectomy by Dr. Kvng Govea on 04/18/2019. The patient's daughter, who is a dialysis nurse stated that 2 days after surgery the wound looked "fine." She stated that 6 weeks after surgery at the time of a followup visit, eschar was associated with the wound and the patient was instructed to cover the wound on a daily basis with a dry dressing. The patient's daughter stated that 3 days later, the wound markedly worsened in its appearance. The patient's daughter stated that Ms. Glass was seen by a Neurosurgery on 2 occasions after the wound has markedly worsened in its appearance. She stated that Ms. Glass was placed on a course of Keflex for 2 weeks. Arrangements for dressing changes with the assistance of Home Health were also made. Arrangements for Home Health and p.o. antibiotics were made by Dr. Govea at the time of the second visit after worsening in the appearance of the wound. The patient was referred to the Wound Center by Dr. Govea on 05/30/2019. After being seen in the Wound Center, the patient was placed on dressing changes of Santyl on a daily basis after cleansing and irrigation again with the assistance of Home Health. PHYSICAL EXAMINATION: VITAL SIGNS: Temperature 97.8, pulse 71, respirations 17, and blood pressure 114/58. BACK: A wound of the back in the midline is present, which measures approximately 1.1 x 0.6 cm. Granulation tissue is present within the wound margins. No purulent drainage is associated with the wound. No erythema of the skin surrounding the wound is present. No maceration of the skin of the periwound is noted. A tunnel at the 12 o'clock position is present and measures approximately 0.9 cm. The length of this tunnel at the time of the patient's last visit was approximately 1.5 cm. ASSESSMENT AND PLAN: 1. Nonhealing surgical wound of the lower back in the midline subsequent to lumbar laminectomy on 04/18/[address] Kvng Govea. Dressing changes of Santyl in conjunction with plain packing strips will be continued on a daily basis after cleansing and irrigation with the assistance of Home Health and the patient's daughters, who are both nurses. Gauze and tape or bordered gauze will be utilized at the time of dressing changes as secondary dressings. I will see Ms. Glass again in 2 weeks. 2. History of hypertension. 3. Hypothyroidism. 4. Aortic stenosis. 5. History of atrial fibrillation. Job ID: [id number]
== END 2019-07-17 11:23 | disposition home or self-care (01) ==
LOC: WCC 11:22
PROVIDERS: ATTEND Family Medicine
DX: T81.89XD Other complications of procedures, not elsewhere classified, subsequent encounter (principal); I10 Essential (primary) hypertension; E03.9 Hypothyroidism, unspecified; I35.0 Nonrheumatic aortic (valve) stenosis; I48.91 Unspecified atrial fibrillation
CPT/HCPCS: A4218

== ENCOUNTER 2019-07-31 11:31 | Outpatient (CLI) | payer MEDICARE ==
--- NOTE | 2019-07-31 12:16 | PRG ---
DATE OF SERVICE: 07/31/2019 SUBJECTIVE: Ms. Violet Glass is a very pleasant 79-year-old, accompanied by one of her daughters, who presents to the Wound Center for evaluation of a nonhealing surgical wound of the back in the midline subsequent to laminectomy by Dr. Kvng Govea on 04/18/2019. The patient's daughter who is a dialysis nurse stated that 2 days after surgery the wound looked "fine." She stated that 6 weeks after surgery at the time of a followup visit, eschar was associated with the wound and the patient was instructed to cover the wound on a daily basis with a dry dressing. The patient's daughter stated that 3 days later, the wound markedly worsened in its appearance. The patient's daughter stated that Ms. Glass was seen by a Neurosurgery on 2 occasions after the wound had markedly worsened in its appearance. She stated that Ms. Glass was placed on a course of Keflex for 2 weeks. Arrangements for dressing changes with the assistance of Home Health were also made. Arrangements for home health and p.o. antibiotics were made by Dr. Govea at the time of the second visit after worsening in the appearance of the wound. The patient was referred to the Wound Center by Dr. Govea on 05/30/2019. After being seen in the Wound Center, the patient was placed on dressing changes of Santyl on a daily basis after cleansing and irrigation again with the assistance of Home Health. OBJECTIVE: VITAL SIGNS: Temperature 97.8, pulse 74, respirations 20, blood pressure 142/65. BACK: Wound of the back in the midline is present, which measures approximately 0.2 x 0.2 cm. Granulation tissue is present within the wound margins. No purulent drainage is associated with the wound. No erythema of the skin surrounding the wound is present. No maceration of the skin of the periwound is noted. No tunnel is associated with the wound on today's exam as it was noted at the time of the patient's last visit. ASSESSMENT AND PLAN: 1. Nonhealing surgical wound of the lower back in the midline subsequent to lumbar laminectomy on 04/18/[address] Kvng Govea. Dressing changes of Santyl will be continued on a daily basis after cleansing and irrigation with the assistance of the patient's daughters. Gauze and tape or bordered gauze will be utilized at the time of dressing changes as secondary dressings. I will see Ms. Glass again on an as-needed basis. The patient will be discharged from clinic today. Home health will also be discontinued. 2. History of hypertension. 3. Hypothyroidism. 4. Aortic stenosis. 5. History of atrial fibrillation. Job ID: [id number]
== END 2019-07-31 11:32 | disposition home or self-care (01) ==
LOC: WCC 11:31
PROVIDERS: ATTEND Family Medicine
DX: T81.89XD Other complications of procedures, not elsewhere classified, subsequent encounter (principal); E03.9 Hypothyroidism, unspecified; I35.0 Nonrheumatic aortic (valve) stenosis; Z86.79 Personal history of other diseases of the circulatory system
CPT/HCPCS: A4218

== ENCOUNTER 2020-05-31 20:45 | Inpatient (IN) | payer MEDICARE, OTHER ==
[~2020-05-31 20:45] MED LIST changes: +Iopamidol-370 76% 500 ML 1 ML ONE; -Sodium Chloride 0.9% 15 ML NEB ONE
[2020-05-31] MEDS ORDERED: Diltiazem 125 MG/25 ML ONE (21:11)
--- NOTE | 2020-05-31 21:36 | RAD ---
Exam: Chest one view HISTORY:Atrial fibrillation. Comparison: 04/20/2019, 2018 FINDINGS: Cardiac silhouette:Cardiomegaly Aorta: Atherosclerosis Pulmonary vessels: Prominent Costophrenic angles: Clear LUNGS: Hyperinflation with diffuse interstitial and alveolar opacities. Pneumothorax: None Osseous abnormalities: None IMPRESSION: 1. Cardiomegaly. Possible congestive heart failure 2. Superimposed interstitial and/or alveolar infiltrates cannot be excluded. Continued surveillance i s recommended.
[2020-05-31 21:53] LABS: #Lymphocytes 1.7 thou/uL (1.20-3.40); #Monocytes 0.5 thou/uL (0.11-0.59); #Neutrophils 4.6 thou/uL (1.40-6.50); %Basophils 0.6 % (0.0-1.0); %Eosinophils 0.5 % (0.0-10.0); %Lymphocytes 24.6 % (21.0-51.0); %Neutrophils 67.3 % (42.0-75.0); Hemoglobin 11.9 g/dL (12.0-16.0); Mean Corpuscular HGB CONC 33.3 g/dL (32.0-36.0); Mean Corpuscular Volume 96.2 fL (78.0-98.0); Mean Platelet Volume 7.9 fL (7.4-10.4); Platelet Count 289 thou/uL (130-400); RBC Distribution Width 12.2 % (11.5-14.5); Red Blood Cell (RBC) Count 3.71 mill/uL (4.20-5.40); White Blood Cell (WBC) Count 6.8 thou/uL (4.8-10.8)
[2020-05-31 21:59] LABS: CK (CPK) 105 U/L (29-168); Lipase 16 U/L (8-78)
[2020-05-31 22:12] LABS: CKMB 2.9 ng/mL (0-6.6)
[2020-05-31] MEDS ORDERED: Lorazepam 2 MG/ML VIAL ONE (22:51)
[2020-05-31 22:58] LABS: Anion Gap 14 mmol/L (10-20); BUN (Urea Nitrogen) 16 mg/dL (9.8-20.1); Calc. Creatinine Clearance 0 mL/min (70-130); Calcium 8.6 mg/dL (7.8-10.44); Carbon Dioxide 20 mmol/L (23-31); Chloride 95 mmol/L (98-107); Estimated GFR-MDRD 70; Glucose 137 mg/dL (83-110); Potassium 4.3 mmol/L (3.5-5.1); Sodium 125 mmol/L (136-145)
--- NOTE | 2020-05-31 23:49 | CT ---
Exam: CT angiogram of the chest HISTORY: Chest pain. Evaluate d-dimer. COMPARISON: None TECHNIQUE: CT angiogram of the chest is performed in the axial plane. Three-dimensional reformatted i mages are submitted for interpretation FINDINGS: Mediastinum: No mass, lymphadenopathy or hematoma. HEART: Cardiomegaly. No significant pericardial fluid. Calcification of the mitral annulus and aortic valve. There is coronary disease. Reflux of contrast into the inferior vena cava suggesting right heart failure. Left ventricular hypertrophy. No significant deviation of the septum. Aorta: Atherosclerosis. No periaortic fat stranding. Technique limits evaluation due to lack of adequ ate contrast opacification Upper solid abdominal viscera: No abnormality enhancement. Trachea and central bronchi: Patent Pleural spaces: Small right-sided pleural effusion. Lung parenchyma: Scattered septal thickening and patchy groundglass opacities. Dependent atelectatic changes in the right lower lobe. No suspicious masses or consolidation Pneumothorax: None Osseous structures: Chronic endplate irregularity at T11. Pulmonary arteries: Adequate contrast opacification pulmonary arterial system to the level of segment al arteries. No filling defect to suggest pulmonary embolism IMPRESSION: 1. No evidence of pulmonary artery embolism to the level of segmental arteries 2. Right-sided pleural effusion. 3. Right heart failure. 4. Patchy interstitial opacities and groundglass opacities. Correlate for pulmonary edema. Correlate for congestive heart failure.
--- NOTE | 2020-05-31 23:56 | CT ---
EXAM: CT ABDOMEN AND PELVIS HISTORY: Pain. Previous appendectomy. Umbilical hernia repair COMPARISON: 04/08/2019 Procedure: Multiple contiguous axial images were obtained and a CT of the abdomen and pelvis with IV contrast. C oronal reformats were performed. FINDINGS: Lower Chest: Small right-sided effusion. Lung parenchymal changes as described on CT angiogram of the chest Vessels: Atherosclerosis of a nonaneurysmal aorta Heart: Cardiomegaly. Abdomen: Portal vein:Patent. There is periportal edema. Gallbladder: Markedly. Cholecystic fluid and edema. There is dilatation of the central intrahepatic b iliary system Liver: Small amount of perihepatic fluid. No enhancing masses. Slightly heterogeneous attenuation is noted which may be due to passive venous congestion from right heart failure Pancreas: within normal limits. Spleen: within normal limits. Adrenals: within normal limits. Kidneys: Symmetric enhancement. No obstructive uropathy. Peritoneum: There is nonspecific mesenteric fluid and stranding involving the epigastric region. Flui d and stranding course along both the celiac artery, hepatic artery and superior mesenteric artery centrally. Additionally there appears to be edema adjacent to the left adrenal gland. Bowel: Limited evaluation due to the lack of oral contrast administration. No evidence of bowel obstr uction. Ileocecal junction is unremarkable. Appendix is not appreciated. No secondary signs of appendicitis. Scattered fecal material in a nondistended, nondilated colon. Mesentery and Retroperitoneum: No enlarged mesenteric or retroperitoneal lymph nodes. Abdominal Wall: within normal limits. Pelvis: Reproductive Organs: Surgically absent uterus. Increased vascularity in the left or right adnexa comp atible with dilatation of the ovarian vein bilaterally. Correlate for pelvic venous congestion. Pelvis: No mass, lymphadenopathy, free air or free fluid. Bladder: within normal limits. Bones: No lytic or blastic lesions in the osseous structures. Chronic changes at T11 and L4. Grade 1 anterolisthesis of L4 upon L5, unchanged IMPRESSION: 1. CT evidence of gallbladder wall edema and pericholecystic fluid. Correlate clinically for cholecys titis. Mild dilatation of the central intrahepatic biliary system. 2. Extensive vascularity involving the left or right adnexa with dilatation of both ovarian veins sug gesting pelvic venous congestion. Correlate clinically. 3. Nonspecific epigastric fluid. Correlate for focal inflammation of the mesentery.
[2020-06-01 00:23] LABS: Lactic Acid 1.8 mmol/L (0.5-2.2)
[2020-06-01] MEDS ORDERED: Piperacillin/Tazobactam 3.375 GM VIAL ONE (00:58)
[2020-06-01] MEDS ORDERED: methylPREDNISolone Sod Succ 40 MG VIAL ONE (01:11)
[2020-06-01] MEDS ORDERED: methylPREDNISolone Sod Succ/PF 125 MG/2 ML VIAL ONE ×2 (01:12→01:14)
[2020-06-01] MEDS ORDERED: Famotidine/PF 20 mg/2ml Vial ONE (01:12)
[2020-06-01] MEDS ORDERED: diphenhydrAMINE 50 MG/ML VIAL ONE (01:12)
[2020-06-01] MEDS ORDERED: Ondansetron ODT 4 MG TAB SL PRN (03:30)
[2020-06-01] MEDS ORDERED: Ondansetron PF 4 MG/2 ML Vial IVP PRN (03:30)
[2020-06-01] MEDS ORDERED: Morphine 4 MG/ML VIAL SLOW IVP PRN (03:31)
[2020-06-01] MEDS ORDERED: Diltiazem HCl 125 MG, Admixture Fee 1 EACH in Sodium Chloride 0.9% 100 ML IVPB SCH (03:45)
[2020-06-01 04:48] LABS: Troponin I 0.128 ng/mL (< 0.028)
[2020-06-01] MEDS ORDERED: HYDROcodone/Acetaminophen 5/325 mg Tablet PO PRN (05:06)
[2020-06-01] MEDS ORDERED: Acetaminophen 325 MG TAB PO PRN (05:06)
[2020-06-01] MEDS ORDERED: Acetaminophen 650 MG Suppository PR PRN (05:06)
--- NOTE | 2020-06-01 05:13 | PDOC.HHP ---
Hospitalist HPI - History of Present Illness abd pain History of Present Illness: Case of an 80y/o female with pmhx of hypothyroidism and hypertension who comes to hospital due to nausea vomiting and abdominal pain. patient states she was on her usual state of health until 2 days ago when she started with abdominal pain on epigastric area 10/10 of intensity non radiatring associated with nausea and vomiting worsen by food ingestion, pt states has not been eating well due to this. patient denies any fever chills dysuria or diarrhea. at the ED patient was noted to have increased HR. patient was evaluated and was dx with afib in rvr for which hospitalist was called for further evaluation and management. Hospitalist ROS - Review of Systems All other systems reviewed; all pertinent +/- noted in HPI/Subj Hospitalist History - Past Medical History Source: patient - Past Surgical History Past Surgical History: reports: Appendectomy, Hernia Repair - Family History Family History: reports: hypertension - Social History Smoking Status: Never smoker Alcohol: reports: None Drugs: reports: none - Exam General Appearance: NAD, awake alert Eye: PERRL, anicteric sclera ENT: normocephalic atraumatic, no oropharyngeal lesions Neck: supple, symmetric, no JVD Heart: irregular Heart - other findings: tachycardic Respiratory: CTAB, no wheezes, no rales Gastrointestinal: soft, non-distended, tender to palpation Extremities: no cyanosis, no clubbing, no edema Skin: normal turgor, no lesions, no rashes Neurological: cranial nerve grossly intact, normal sensation to touch Musculoskeletal: normal tone, normal strength, no muscle wasting Psychiatric: normal affect, normal behavior, A&O x 3 Hospitalist Results - Labs Result Diagrams: 05/31/20 21:13 05/31/20 22:27 Lab results: WBC 6.8 thou/uL (4.8-10.8) 05/31/20 21:13 Hgb 11.9 g/dL (12.0-16.0) L 05/31/20 21:13 Hct 35.7 % (36.0-47.0) L 05/31/20 21:13 MCV 96.2 fL (78.0-98.0) 05/31/20 21:13 Plt Count 289 thou/uL (130-400) 05/31/20 21:13 Neutrophils % 67.3 % (42.0-75.0) 05/31/20 21:13 Sodium 125 mmol/L (136-145) L 05/31/20 22:27 Potassium 4.3 mmol/L (3.5-5.1) 05/31/20 22:27 Chloride 95 mmol/L (98-107) L 05/31/20 22:27 Carbon Dioxide 20 mmol/L (23-31) L 05/31/20 22:27 BUN 16 mg/dL (9.8-20.1) 05/31/20 22:27 Creatinine 0.79 mg/dL (0.6-1.1) 05/31/20 22:27 Glucose 137 mg/dL (83-110) H 05/31/20 22:27 Lactic Acid 1.8 mmol/L (0.5-2.2) 06/01/20 00:00 Calcium 8.6 mg/dL (7.8-10.44) 05/31/20 22:27 Total Bilirubin TNP 05/31/20 21:13 AST TNP 05/31/20 21:13 ALT TNP 05/31/20 21:13 Alkaline Phosphatase TNP 05/31/20 21:13 Creatine Kinase 105 U/L (29-168) 05/31/20 21:13 CK-MB (CK-2) 2.9 ng/mL (0-6.6) 05/31/20 21:13 Troponin I 0.128 ng/mL (< 0.028) H 06/01/20 04:15 Serum Total Protein TNP 05/31/20 21:13 Albumin TNP 05/31/20 21:13 Lipase 16 U/L (8-78) 05/31/20 21:13 Hospitalist H&P A/P - Problem (1) Atrial fibrillation with RVR Code(s): I48.91 - UNSPECIFIED ATRIAL FIBRILLATION Status: Resolved (2) Cholecystitis Code(s): K81.9 - CHOLECYSTITIS, UNSPECIFIED Status: Acute (3) Hyponatremia Code(s): E87.1 - HYPO-OSMOLALITY AND HYPONATREMIA Status: Acute (4) Hypothyroidism Code(s): E03.9 - HYPOTHYROIDISM, UNSPECIFIED Status: Chronic - Plan Plan: 80 y/o female with the stated pmhx who present with abd pain dx with cholecystitis and found to be on afib on rvr afib in rvr - on diltiazem drip - full ac with lovenox - 2d echo - trend serial troponins - ekg consistent with afib - cardiology consulted cholecystitis - ct consistent with inflammation of gallbladder - gen consulted - no icterus present, cmp sent stat to evaluated bili and liver enzymes - on merrem iv hyponatremia - unclear type, pt refers a few days of decrease po ingestion - unclear volume status due to afib - cxr chest ct and abd ct showed vascular congestion - will evaluated this further with serum osmolality and tsh - nephro consulted
[2020-06-01 05:23] VITALS: BMI 22.8
[2020-06-01] MEDS ORDERED: Piperacillin/Tazobactam 4.5 GM in Sodium Chloride 0.9% 100 ML IVPB SCH (06:00)
[2020-06-01 06:42] LABS: ALT (SGPT) 43 U/L (8-55); AST (SGOT) 61 U/L (5-34); Albumin 3.7 g/dL (3.4-4.8); Alkaline Phosphatase 63 U/L (40-110); Anion Gap 14 mmol/L (10-20); BUN (Urea Nitrogen) 16 mg/dL (9.8-20.1); Bilirubin, Total 1.1 mg/dL (0.2-1.2); Calc. Creatinine Clearance 49 mL/min (70-130); Calcium 8.9 mg/dL (7.8-10.44); Carbon Dioxide 19 mmol/L (23-31); Chloride 95 mmol/L (98-107); Estimated GFR-MDRD 70; Globulin 3.8 g/dL (2.4-3.5); Glucose 165 mg/dL (83-110); Potassium 3.8 mmol/L (3.5-5.1); Protein, Total 7.5 g/dL (6.0-8.3); Sodium 124 mmol/L (136-145)
[2020-06-01] MEDS ORDERED: Prevnar 13-Val Conj/PF 0.5 ML SYRINGE IM ONE (07:00)
[2020-06-01] MEDS ORDERED: Piperacillin/Tazobactam 3.375 GM in Sodium Chloride 0.9% 100 ML IVPB SCH (08:00)
[2020-06-01] MEDS ORDERED: Enoxaparin Sodium 60 MG/0.6 ML SYRINGE SC SCH (09:00)
[2020-06-01] MEDS ORDERED: Furosemide 40 MG/4 ML VIAL SLOW IVP SCH ×2 (09:56→18:15)
[2020-06-01] MEDS: MEROPENEM 1 GM/50 ML 1 GM in Premix Bag 1 BAG IVPB SCH ×3 (10:36→22:10)
--- NOTE | 2020-06-01 11:57 | CON ---
DATE OF CONSULTATION: 06/01/2020 REASON FOR CONSULTATION: Hyponatremia. HISTORY OF PRESENT ILLNESS: This is an 80-year-old female, being seen for abdominal pain, presented to the hospital with a sodium of 124, so I was consulted for further evaluation and workup. The patient, according to her, has had a low sodium and her primary care physician has been telling her to eat more sodium. She has an elevated BNP and a low TSH. The patient denies any headache, numbness, tingling, or weakness. Denies any nausea, vomiting, or chest pain. PAST MEDICAL HISTORY: Significant for; 1. Appendectomy. 2. Hernia repair. 3. Hypertension. 4. Hyponatremia. SOCIAL: No alcohol or drug use. FAMILY HISTORY: Negative for ESRD. ALLERGIES: REVIEWED. MEDICATIONS: Home medications list, reviewed. Hospital medications list, reviewed. REVIEW OF SYSTEMS: Fifteen-point review of system was performed, negative except for positives noted above. HEENT: Eyes intact, no diplopia. Ears: No hearing loss or earache. Nose: No discharge or bleeding. CHEST: No cough or phlegm. ABDOMEN: No nausea or vomiting. GENITOURINARY: No hematuria. No Garza catheter. MUSCULOSKELETAL: No low back pain. No joint swelling or pain. NEUROLOGICAL: No syncope. No seizures. SKIN: No complaints of rash or itching. PSYCHIATRIC: No depression. CONSTITUTIONAL: No weight loss or loss of appetite. PHYSICAL EXAMINATION: GENERAL: The patient is awake and alert. VITAL SIGNS: Afebrile. Pulse 75, breathing at 16, blood pressure 125/74. HEENT: Head normocephalic and atraumatic. Eyes intact, no ulcers. Nose intact, no ulcers. Ears intact, no ulcers. NECK: Supple. No JVD. CHEST: Symmetrical and clear. CARDIOVASCULAR: Shows S1 and S2, no rub, no murmur. GASTROINTESTINAL: Abdomen is soft, bowel sounds positive. EXTREMITIES: Show no edema or ulcers. SKIN: Shows no rash or petechiae. MUSCULOSKELETAL: Shows no joint swelling or stiffness. GENITOURINARY: Shows no Garza or CVA tenderness. NEUROLOGIC: Motor intact. Cranial nerves intact. LABORATORY DATA: Labs showed sodium 124. Serum osmolality is 271. ASSESSMENT AND RECOMMENDATION: 1. 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 Would recommend 800 mL fluid restriction. 2. Hyperthyroidism. I would recommend checking a T4. 3. Anemia, stable. Medication based on GFR appropriate. The patient should be on a 1 L fluid restriction diet as an outpatient. Job ID: [id number]
[2020-06-01 12:25] LABS: SARS-CoV-2 MS2 Positive; SARS-CoV-2 N Gene Negative; SARS-CoV-2 S Gene Negative; SARS-CoV-2 by NAA Not Detected (NotDetected); SARS-CoV-2 orf1ab Negative
--- NOTE | 2020-06-01 14:47 | ULT ---
GALLBLADDER ULTRASOUND: Date: 06/01/2020 INDICATION: Abdominal pain. FINDINGS: Images of the gallbladder reveal edematous wall with thickening and pericholecystic edema. No evidenc e of gallstones. Technologist describes a negative Jonas's sign. Common bile duct is normal caliber at 2-3 mm. Visualized liver appears unremarkable. Pancreas is mostly obscured by unremarkable where visualized. Right kidney shows mild prominence of the renal pelvis and is otherwise unremarkable. IMPRESSION: 1. Gallbladder wall thickening with mild pericholecystic edema. No evidence of gallstones identified . Negative Jnoas's sign described. Consider evaluation with hepatobiliary scan to assess gallbladder function. 2. Incidentally noted is right pleural effusion. POS: AH
--- NOTE | 2020-06-01 16:26 | PDOC.HOSPP ---
- Subjective Encounter Date: 06/01/20 Encounter Time: 13:00 Subjective: has epigastric pain, sob with orthopnea no chest pain - Objective Vital Signs & Weight: Vital Signs (12 hours) Temp Pulse Ox 06/01/20 16:12 98 06/01/20 08:00 97 06/01/20 07:19 98.2 F Weight Weight 124 lb 14.4 oz Most Recent Monitor Data Heart Rate from ECG 106 NIBP 141/94 NIBP BP-Mean 109 Respiration from ECG 23 SpO2 96 I&O: 05/31/20 06/01/20 06/02/20 06:59 06:59 06:59 Output Total 1800 Balance -1800 Result Diagrams: 05/31/20 21:13 06/01/20 06:02 Hospitalist ROS - Medication Medications: Active Medications Generic Name Dose Route Start Last Admin Trade Name Freq PRN Reason Stop Dose Admin Meropenem 1 gm/ Device 50 mls @ 100 mls/hr 06/01/20 06:00 06/01/20 10:36 IVPB 50 mls Q8HR CHERRI Administration Sodium Chloride 10 ml 06/01/20 09:00 06/01/20 10:37 Flush - Normal Saline IVF 10 ml Q12HR CHERRI Administration - Exam General Appearance: awake alert, ill appearing Eye: PERRL, anicteric sclera ENT: no oropharyngeal lesions, dry oral mucosa Neck: supple, JVD Heart: RRR, murmur present Respiratory: no wheezes, rales, rhonchi Gastrointestinal: soft, non-distended, normal bowel sounds, no guarding, no rigidity Extremities: no cyanosis, no edema Neurological: cranial nerve grossly intact, no focal deficits Psychiatric: normal affect, A&O x 3 Hosp A/P (1) Aortic stenosis Code(s): I35.0 - NONRHEUMATIC AORTIC (VALVE) STENOSIS Status: Chronic Qualifiers: Cardiac valve disease etiology: nonrheumatic Qualified Code(s): I35.0 - Nonrheumatic aortic (valve) stenosis (2) Acute diastolic CHF (congestive heart failure), NYHA class 3 Code(s): I50.31 - ACUTE DIASTOLIC (CONGESTIVE) HEART FAILURE Status: Acute (3) Cholecystitis Code(s): K81.9 - CHOLECYSTITIS, UNSPECIFIED Status: Suspected (4) Hyponatremia Code(s): E87.1 - HYPO-OSMOLALITY AND HYPONATREMIA Status: Acute (5) Hypothyroidism Code(s): E03.9 - HYPOTHYROIDISM, UNSPECIFIED Status: Chronic Qualifiers: Hypothyroidism type: unspecified Qualified Code(s): E03.9 - Hypothyroidism , unspecified (6) Atrial fibrillation with RVR Code(s): I48.91 - UNSPECIFIED ATRIAL FIBRILLATION Status: Resolved - Plan has severe aortic stenosis with prior valve area of 0.4cm2 d/w , repeat echo has recieved 1 dose lasix protonix is in sinus rhythm, has underlying lbbb likely will need cath/cabg if cad with avr or tavr and stenting not sure if she has ac cholecystitis, await surgical opinion is functional and does all her adl's at home, cognitively good for her age.
--- NOTE | 2020-06-01 19:16 | CON ---
DATE OF CONSULTATION: 06/01/2020 REASON FOR CONSULTATION: Preoperative evaluation and aortic stenosis. HISTORY OF PRESENT ILLNESS: Ms. Glass is a very pleasant 80-year-old white female, who comes to the hospital for abdominal pain. She was admitted earlier this morning after coming into the hospital last night for abdominal pain. She had nausea and vomiting. In the ER, she had a CT of the abdomen and was found to have inflammation around the gallbladder, so she was admitted for possible cholecystitis. Right upper quadrant ultrasound was repeated as well, which showed fluid around the gallbladder. However, she also has fluid in the rest of the abdominal cavity and a right pleural effusion. She did not have any gallstones. Secondary to this, surgery was called for possible acalculous cholecystitis and Cardiology is being called for preoperative evaluation as she may need something done with her gallbladder and she has a history of aortic stenosis. Ms. Glass was in the hospital in April of last year and she had an echocardiogram that showed an EF of 60% to 65% with grade 2 diastolic dysfunction. Her aortic valve was heavily calcified with severe aortic valve stenosis with valve area 0.4 cm2, mean gradient of 48 mmHg, and a max velocity of 4.6 m/sec. She was advised to finish her antibiotic course at that time and followup after her back surgery was done for evaluation of aortic stenosis, so she can get this fixed. She never had any followup. She also has a history of paroxysmal atrial fibrillation for which she has been on amiodarone for the last year. PAST MEDICAL HISTORY: 1. Severe aortic valve stenosis as above. 2. Lumbar stenosis. 3. Thyroid disease. 4. Hypertension. 5. Anxiety. PAST SURGICAL HISTORY: 1. Appendectomy. 2. Endometriosis removal. 3. Hernia repair. 4. Lower back surgery. OUTPATIENT MEDICATIONS: 1. Tramadol. 2. Clonidine. 3. [place] Thyroid 60 mg a day. 4. Temazepam. 5. Senokot. 6. MiraLAX. 7. Toprol-XL 25 mg a day. 8. Lorazepam. 9. Gabapentin. 10. She is not taking Multaq, anyway she is actually on amiodarone 200 mg a day. 11. Diltiazem 30 mg q.6 hours. 12. Cyclobenzaprine p.r.n. 13. Tylenol p.r.n. ALLERGIES: 1. ZOSYN. 2. CIPRO. 3. PENICILLIN. 4. KEFLEX. SOCIAL HISTORY: No alcohol, tobacco, or drugs. FAMILY HISTORY: Noncontributory. REVIEW OF SYSTEMS: A 12-point review of systems was done and was all negative unless stated in history of present illness. PHYSICAL EXAMINATION: VITAL SIGNS: Temperature 98.2, pulse 104, respiratory rate 21, saturating 90% on 1 L nasal cannula. GENERAL: Awake, alert, oriented x3, in no distress. HEENT: Normocephalic and atraumatic. NECK: Supple. LUNGS: Have mild crackles at bases with reduced breath sounds in the right side. ABDOMEN: Soft. No rebound or guarding. No Jonas sign. EXTREMITIES: No edema. SKIN: Warm and dry. LABORATORY WORK: Reviewed. White count of 6, hemoglobin 11.9, hematocrit 35, platelet count 289. D-dimer is a little bit high. Chemistry with a sodium 124, potassium 3.8, chloride of 95, carbon dioxide of 19, anion gap of 14, BUN of 16, creatinine 0.79, GFR of 70, glucose of 165. Troponin was in the indeterminate range x3; 0.08, 0.09, 0.12. BNP was 1379. Albumin of 3.7. TSH was low at 0.10. COVID-[address] of the abdomen and pelvis and abdominal ultrasound were both reviewed. ASSESSMENT: 1. Preoperative evaluation. 2. Severe aortic valve stenosis, critical. 3. Oqeuf-ua-hccqzaa systolic versus diastolic heart failure. 4. Possible acute acalculous cholecystitis. 5. Paroxysmal atrial fibrillation. PLAN: 1. Currently Ms. Glass is volume overload. We will recommend IV Lasix to try to dry her up a little bit. 2. Concerned that her abdominal swelling, gallbladder is more related to just generalized edema and a little bit of ascites from severe aortic stenosis. 3. She will need aortic valve surgery. Ms. Glass is well aware of this and she is in agreement to try to proceed with this as possible. 4. She would be high risk for any type of surgery at this point. After discussion with Dr. Eubanks, who saw her earlier today, he will get a HIDA scan tomorrow and if her gallbladder EF is not abnormal, then he will do a medical therapy and if that is the case and there was no acute infection, I would proceed with further diuresis and then try to set her up for either a transcutaneous aortic valve replacement versus surgical valve replacement. 5. She is currently in sinus rhythm. On my evaluation, she may be going in and out. We will restart her amiodarone 200 mg a day. Thank you for letting us to participate in the care of your patient. We will continue to follow. Job ID: [id number]
--- NOTE | 2020-06-01 21:05 | NM ---
Exam: Nuclear medicine HIDA scan HISTORY: Gallbladder edema noted on CT. Comparison None TECHNIQUE: Patient was administered 5.3 mCi of technetium 99m mebrofenin intravenously. The patient was pretreated with 1.1 mcg CCK intravenously, 30 minutes prior to injection of radiophar maceutical. Patient was also given additional 1.1 mcg of CCK intravenously over 30 minute infusion to determine ejection fraction FINDINGS: Uptake of the radiotracer by the hepatic parenchyma. There is excretion of radiotracer from the common bile duct into small bowel loops. There is localization of radiotracer starting at the 59 minute image. Additional static images were obtained and does demonstrate progression of radiotrac er accumulation in the gallbladder. Gallbladder ejection fraction: 20% IMPRESSION: 1. No scintigraphic evidence of acute cholecystitis 2. Diminished gallbladder ejection fraction. Correlate for chronic cholecystitis/acalculous cholecyst itis/gallbladder dyskinesia. Findings conveyed to Dr. Eubanks via [employer] connect 06/01/2020 at 9:05 PM Code CR Transcribed Date/Time: 06/01/2020 9:29 PM
[2020-06-02 00:09] LABS: Anion Gap 14 mmol/L (10-20); BUN (Urea Nitrogen) 17 mg/dL (9.8-20.1); Calc. Creatinine Clearance 38 mL/min (70-130); Carbon Dioxide 27 mmol/L (23-31); Chloride 92 mmol/L (98-107); Estimated GFR-MDRD 52; Glucose 218 mg/dL (83-110); Potassium 3.3 mmol/L (3.5-5.1); Sodium 130 mmol/L (136-145)
--- NOTE | 2020-06-02 00:20 | CON ---
DATE OF CONSULTATION: 06/01/2020 REQUESTING PHYSICIAN: Naldo Obrien MD HISTORY OF PRESENT ILLNESS: This is an 80-year-old woman, who presented with 2-day history of epigastric abdominal pain after eating. The pain is associated with episodes of nausea and nonbilious emesis. Maximum intensity pain was rated at 10/10 without radiation. She took xkep-vem-azddmeb remedies with minimum relief. The patient denies any fevers or chills. She denies any change in her bowel habits. She denies any unexplained weight loss. PAST MEDICAL HISTORY: Significant for essential hypertension, hypothyroidism, and recently diagnosed atrial fibrillation with rapid ventricular response. PAST SURGICAL HISTORY: Pertinent for umbilical herniorrhaphy with incidental appendectomy, diagnostic laparoscopy followed by exploratory laparotomy for endometrial implants. SOCIAL HISTORY: The patient denies any cigarette smoking, ethanol, or illicit drug abuse. FAMILY HISTORY: Noncontributory for this patient's age. PREHOSPITALIZATION MEDICATIONS: 1. Acetaminophen 650 mg p.o. q.4 hours p.r.n. 2. Clonidine 0.1 mg p.o. b.i.d. 3. Flexeril 10 mg p.o. b.i.d. 4. Diltiazem 30 mg p.o. q.6 hours. 5. Multaq 400 mg p.o. b.i.d. 6. Gabapentin 100 mg p.o. b.i.d. 7. Lorazepam 2 mg p.o. b.i.d. p.r.n. 8. Metoprolol 25 mg p.o. daily. 9. Temazepam 30 mg p.o. at bedtime p.r.n. sleep. 10. [place] Thyroid 60 mg p.o. daily. 11. Tramadol 50 mg p.o. q.6 hours p.r.n. pain. ALLERGIES: TO PENICILLIN, CIPROFLOXACIN. REVIEW OF SYSTEMS: Ten-point review of systems essentially unremarkable except as stated in past medical history and chief complaint. PHYSICAL EXAMINATION: GENERAL: This reveals an 80-year-old normally-developed woman, who is otherwise coherent, interactive, and appears stated age. The patient is alert and oriented x3. She appears to be in no acute distress at time of my evaluation. VITAL SIGNS: Currently include blood pressure 145/89, pulse is 106 and irregular, respiratory rate is 19, maximum temperature since admission 98.2 degrees Fahrenheit, oxygen saturation is 98% on room air. HEENT: Reveals normocephalic and atraumatic. She has no scleral icterus present. HEART: Reveals irregular rate and irregular rhythm. LUNGS: Clear to auscultation bilaterally. Her breathing is regular and nonlabored. ABDOMEN: Soft and nondistended. She has moderate epigastric right upper quadrant tenderness to palpation. She has a negative Jonas sign. Liver and spleen otherwise nonpalpable below costal margin. EXTREMITIES: Reveal 2+ radial and pedal pulses bilaterally. NEUROLOGIC: Reveals no focal deficits present. LABORATORY FINDINGS: Today include metabolic profile; sodium 124, potassium 3.8, chloride is 95, bicarb is 19, BUN 16, creatinine 0.79, glucose is 165, total bilirubin is 1.1, AST and ALT are 61 and 43 respectively. Alkaline phosphatase is 63. BNP is 1279.4. Troponin I was 0.090 and had increased to 0.128 four hours later. COVID-19 test is negative. I have personally reviewed the CT scan of the chest obtained yesterday, which is negative for pulmonary embolism. There is right-sided pleural effusion present. Subsequent chest x-ray reveals cardiomegaly with bilateral interstitial and alveolar infiltrates present. CT scan of the abdomen and pelvis, which was obtained yesterday reveals a small pericholecystic fluid with mild intrahepatic biliary ductal dilatation. Abdominal ultrasound was obtained today and this reveals a gallbladder wall thickening with small pericholecystic fluid. No gallstones present. Common bile duct is normal in diameter for this patient's age at 3 mm. IMPRESSION: 1. Epigastric right upper quadrant abdominal pain of indeterminate etiology, we will; however, rule out acute acalculous cholecystitis. 2. Acute congestive heart failure. RECOMMENDATIONS: 1. We will obtain HIDA scan to rule out cystic ductal obstruction and also to evaluate for gallbladder ejection fraction, which might be indicative of chronic cholecystitis if acute cholecystitis is not established. 2. We will defer medical management of the chronic congestive heart failure to the primary service. 3. Above findings and plan has been discussed with the patient. 4. I have informed the patient that if acalculous cholecystitis is established as a diagnosis and warrants surgical intervention, the risks include, but not limited to, bleeding, infection, injury to bile duct or surrounding structures. 5. The patient indicates understanding of the information I provided her today in the presence of her nurse at bedside. 6. I have answered her questions. Thank you again, Dr. Obrien, for allowing me the opportunity to participate in the care of this patient. Job ID: [id number]
[2020-06-02 03:22] LABS: Band 3 % (5-11); Lymphocytes 12 % (21-51); MDiff Complete? YES; Mean Corpuscular HGB CONC 32.5 g/dL (32.0-36.0); Mean Corpuscular Hemoglobin 31.6 pg (27.0-31.0); Mean Corpuscular Volume 97.2 fL (78.0-98.0); Mean Platelet Volume 7.9 fL (7.4-10.4); Monocytes 8 % (0-10); Neutrophil 77 % (42-75); Platelet Count 303 thou/uL (130-400); Platelet Morphology Comment Appears Adequate; RBC Distribution Width 12.6 % (11.5-14.5); RBC Morphology Normal; Red Blood Cell (RBC) Count 3.79 mill/uL (4.20-5.40); White Blood Cell (WBC) Count 11.1 thou/uL (4.8-10.8)
[2020-06-02 03:39] LABS: ALT (SGPT) 39 U/L (8-55); AST (SGOT) 50 U/L (5-34); Albumin 3.7 g/dL (3.4-4.8); Alkaline Phosphatase 65 U/L (40-110); Anion Gap 14 mmol/L (10-20); BUN (Urea Nitrogen) 18 mg/dL (9.8-20.1); Bilirubin, Total 0.6 mg/dL (0.2-1.2); Calc. Creatinine Clearance 47 mL/min (70-130); Carbon Dioxide 25 mmol/L (23-31); Chloride 92 mmol/L (98-107); Estimated GFR-MDRD 66; Globulin 4.3 g/dL (2.4-3.5); Glucose 115 mg/dL (83-110); Potassium 3.4 mmol/L (3.5-5.1); Sodium 128 mmol/L (136-145)
[2020-06-02] MEDS: MEROPENEM 1 GM/50 ML 1 GM in Premix Bag 1 BAG IVPB SCH ×2 (06:41→12:55)
[2020-06-02] MEDS: Furosemide 40 MG/4 ML VIAL SLOW IVP SCH ×2 (06:42→12:55)
[2020-06-02] MEDS ORDERED: Fentanyl 100 MCG/2 ML VIAL ONE (08:54)
[2020-06-02] MEDS ORDERED: Bupivacaine 0.25% HCL 30 ML VIAL ONE (08:54)
[2020-06-02] MEDS ORDERED: Lidocaine 1% w/Epinephrine 1:100K 20 ML VIAL ONE (08:54)
[2020-06-02] MEDS ORDERED: Phenylephrine 10 MG/ML VIAL ONE (09:20)
--- NOTE | 2020-06-02 10:36 | PDOC.CPN ---
- Subjective Date: 06/02/20 Time: 10:31 Interval history: No new issues. Her HIDA scan shows EF on gallbladder at 20% and need something to be done about it. - Review of Systems General: denies: fever/chills, weight/appetite/sleep changes, night sweats, fatigue Respiratory: reports: shortness of breath. denies: cough, congestion, exercise intolerance Cardiovascular: denies: chest pain, palpitation, edema, paroxysmal nocturnal dyspnea, orthopnea Gastrointestinal: reports: abd pain. denies: nausea, vomiting, diarrhea, constipation, GI bleeding Musculoskeletal: denies: pain, tenderness, stiffness, swelling, arthritis/ arthralgias Neurological: denies: numbness, syncope, seizure, weakness - Objective Allergies/Adverse Reactions: Allergies Allergy/AdvReac Type Severity Reaction Status Date / Time piperacillin [From Zosyn] Allergy Severe Short of Verified 06/01/20 05:33 Breath tazobactam [From Zosyn] Allergy Severe Short of Verified 06/01/20 05:33 Breath ciprofloxacin [From Cipro] Allergy Intermediate Nausea Verified 06/01/20 05:33 Penicillins Allergy Unknown Verified 06/01/20 05:33 cephalexin [From Keflex] Allergy Hives Verified 06/01/20 05:33 Visit Medications: Current Medications Acetaminophen (Tylenol) 650 mg PO Q4H PRN PRN Reason: Headache/Fever/Mild Pain (1-3) Acetaminophen (Tylenol) 650 mg MT Q4H PRN PRN Reason: Headache/Fever/Mild Pain (1-3) Hydrocodone Bitart/Acetaminophen ([place] 5/325) 1 tab PO Q4H PRN PRN Reason: Moderate Pain (4-6) Furosemide (Lasix) 40 mg SLOW IVP 0600,1400 [facility] Last Admin: 06/02/20 06:42 Dose: 40 mg Meropenem 1 gm/ Device 50 mls @ 100 mls/hr IVPB Q8HR CHERRI Last Admin: 06/02/20 06:41 Dose: 50 mls Sodium Chloride (Flush - Normal Saline) 10 ml IVF Q12HR CHERRI Last Admin: 06/01/20 22:09 Dose: 10 ml Sodium Chloride (Flush - Normal Saline) 10 ml IVF PRN PRN PRN Reason: Saline Flush Vital Signs & Weight: Vital Signs Temp 06/02/20 07:39 97.3 F L 06/02/20 03:29 99.3 F 06/01/20 23:31 98.0 F Weight 124 lb 14.4 oz - Physical Exam General: alert & oriented x3 HEENT: mucus membranes moist Neck: supple neck Cardiac: regular rate and rhythm, systolic murmur Lungs: clear to auscultation Neuro: grossly intact Abdomen: active bowel sounds Extremities: no edema Skin: clear Musculoskeletal: no pain - Labs Result Diagrams: 06/02/20 02:46 06/02/20 02:46 Troponin/CKMB CK-MB (CK-2) 2.9 ng/mL (0-6.6) 05/31/20 21:13 Troponin I 0.128 ng/mL (< 0.028) H 06/01/20 04:15 - Telemetry Sinus rhythms and dysrhythmias: sinus rhythm - Assessment/Plan Assessment/Plan: 1. Acute acalculous cholecystitis. 2. Critical 3. Dilated cardomyopathy, new, EF at 40-45% 4. Paroxysmal afib. PLAN: - High risk for general anesthesia. - Mortality high with surgery - Likely better scenario would be to temporize valve with valvuloplasty for surgery and/or temporize gallbladder with a drain. - Spoke with Dr. Lewis in [facility] and he agree. He accepts transfer for higher level of care. - Critical Care Time Critical care time (mins): 45
--- NOTE | 2020-06-02 11:18 | PRG ---
DATE OF SERVICE: 06/02/2020 SUBJECTIVE: An 80-year-old female being seen for hyponatremia due to hydrochlorothiazide. The patient denies any complaint. PHYSICAL EXAMINATION: GENERAL: Patient is resting. VITAL SIGNS: Afebrile, pulse 75, breathing 16, blood pressure 116/62. HEENT: Head normocephalic and atraumatic. Eyes intact, no ulcers. Nose intact, no ulcers. Ears intact, no ulcers. NECK: Supple. No JVD. CHEST: Symmetrical and clear. CARDIOVASCULAR: Shows S1 and S2, no rub, no murmur. GASTROINTESTINAL: Abdomen is soft, bowel sounds positive. EXTREMITIES: Show no edema or ulcers. SKIN: Shows no rash or petechiae. MUSCULOSKELETAL: Shows no joint swelling or stiffness. GENITOURINARY: Shows no Garza or CVA tenderness. NEUROLOGIC: Motor intact. Cranial nerves intact. LABORATORY DATA: Potassium 3.4, sodium 130. ASSESSMENT AND PLAN: 1. Hyponatremia, improved. Stop hydrochlorothiazide. 2. Hypokalemia. Recommend potassium replacement. I will sign off. Please reconsult as needed. Recommend fluid restriction and checking thyroid test. Job ID: [id number]
[2020-06-02 11:53] VITALS: TEMP 97.2
[2020-06-02] MEDS ORDERED: ALPRAZolam 0.5 MG TAB PO SCH (13:00)
[2020-06-02] MEDS ORDERED: Digoxin 0.5 MG/2 ML AMP SLOW IVP SCH (13:05)
[2020-06-02] MEDS ORDERED: Amiodarone 450 MG, Admixture Fee 1 EACH in Dextrose 5% in Water 250 ML IVPB SCH (14:15)
[2020-06-02] MEDS ORDERED: Amiodarone 150 MG, Admixture Fee 1 EACH in Dextrose 5% in Water 100 ML IVPB SCH (14:15)
[2020-06-02] MEDS ORDERED: Potassium Chloride 20 MEQ TAB PO SCH (14:30)
[2020-06-02] MEDS ORDERED: Digoxin 0.5 MG/2 ML AMP ONE (15:09)
--- NOTE | 2020-06-02 15:39 | PRG ---
DATE OF SERVICE: 06/02/2020 SUBJECTIVE: Ms. Glass is an 80-year-old woman, whom I saw in consultation yesterday for acalculous cholecystitis. The patient has a history of severe aortic stenosis. HIDA scan which was obtained yesterday was significant for abnormal ejection fraction at 20%. Gallbladder itself was visualized. This morning, the patient is awake and alert. She denies any significant abdominal pain, nausea or vomiting. OBJECTIVE: VITAL SIGNS: This morning include blood pressure of 122/85, pulse of 94, respiratory rate of 22, maximum temperature in last 24 hours is 99.3 degrees Fahrenheit, and oxygen saturation of 97% on 2 L by nasal cannula oxygen. HEENT: No scleral icterus present. NECK: She has no jugular venous distention noted. ABDOMEN: Soft, nontender, and nondistended. NEUROLOGIC: No focal deficits present. LABORATORY FINDINGS: Today include a CBC now with 11,100 white blood cells contrast to 6800 on 05/31/2020. Hemoglobin and hematocrit are stable at 12.0 and 36.9 respectively. Platelet count is 203,000. I discussed options with the patient. She definitely will need a laparoscopic cholecystectomy, though timing is in question at this time given her severe aortic stenosis. I discussed with the patient, her daughter as well as her occupational therapist assistants and anesthesia. There was a general consensus that the patient will be best served to be transferred to [facility] in [place] where she may have a preoperative valvuloplasty. Her perioperative risk is deemed quite significant. I do not think that she is a good candidate right now for cholecystostomy tube placement especially if she is going to require anticoagulation any time soon. The patient and her daughter indicates understanding of information provided. I answered their questions. Job ID: [id number]
--- NOTE | 2020-06-02 17:04 | PRG ---
DATE OF SERVICE: 06/02/2020 SUBJECTIVE: Ms. Glass went into what appears to be atrial fibrillation with RVR. She has a rate related left bundle branch block that comes on once her heart rate reaches above 90. She has a wide-complex rhythm, it looks like VT, but it is irregular with no P-wave morphology, so it is most likely atrial fibrillation. She was started on amiodarone. However, her blood pressure was as low as 60s over 40s. Right before I was getting ready to give her shock to get her out of this, we gave her a bolus of amiodarone and that actually made her heart rate go from the 160s down to the 120s and her blood pressure picked back up from the 60s over 40s up to low 100s over 60s. She has actually remained there for the last 30 minutes and has remained stable. She feels a lot better. Does not have any more chest pain, no more lightheadedness or presyncopal symptoms. We also replaced a little bit more her potassium, it was mildly low this morning. She is feeling better overall and has maintained her blood pressure and her heart rate is down to the 110s for the last 30 to 45 minutes. So I think it is safe for her to be transferred over to [place] with the current amiodarone drip. has already been contacted. She will be transferred to [facility] on an emergent fashion, life flighted. 60 minutes of critical care time. Job ID: [id number]
--- NOTE | 2020-06-05 13:36 | DIS ---
DATE OF ADMISSION: 06/01/2020 DATE OF DISCHARGE: 06/02/2020 DISCHARGE DISPOSITION: [facility]. PRIMARY DISCHARGE DIAGNOSES: Severe aortic stenosis, acute noncalculous cholecystitis, acute congestive heart failure exacerbation with systolic and diastolic dysfunction, hyponatremia, hypothyroidism, and atrial fibrillation with RVR. PROCEDURES DONE DURING HOSPITALIZATION: CT of the abdomen and pelvis with contrast done showed gallbladder wall edema and pericholecystic fluid, mild dilatation of the central intrahepatic biliary system. Findings suggestive of pelvic venous congestion. Nonspecific epigastric fluid correlate for focal inflammation of the mesentery. CT angio chest done showed no evidence of pulmonary embolus to the level of segmental arteries, right-sided pleural effusion, findings of right heart failure, ground-glass opacities with patchy interstitial opacities suggestive of pulmonary edema. Abdominal ultrasound of right upper quadrant showed gallbladder wall thickening with mild pericholecystic edema. No evidence of gallstones. HIDA scan shows no scintigraphic evidence of acute cholecystitis, diminished gallbladder ejection fraction of around 20%. Echo with 2D Doppler showed ejection fraction of around 40% to 45%, diastolic dysfunction, [id number] mitral regurgitation, moderate pulmonary regurgitation, small pericardial effusion, heavily calcified aortic valve with reduced cusp opening and valve area of 0.3 sq cm. Mean gradient was 61 mmHg. Maximum velocity was 5.1 millimeter/sec. Blood cultures x2, no growth. White count of 6.8 on the day of admission. Hemoglobin and hematocrit of 11 and 35 and platelet count 289. D-dimer 1.19. Discharge sodium of 128, serum bicarb 25, BUN 18, creatinine 0.8, AST 50, ALT 39, alkaline phosphatase 65, total bilirubin 0.6, and albumin 3.7. BNP was 1379. Troponin I was indeterminate peaking up to 0.12. COVID-19 PCR on 06/01/2020 was not detected. DISCHARGE MEDICATIONS: Lisinopril with hydrochlorothiazide 20/12.5 mg one tablet daily and [place] Thyroid 60 mg daily. ALLERGIES: ZOSYN, CIPROFLOXACIN, PENICILLIN, AND KEFLEX. INPATIENT CONSULT: 1. Dr. Eubanks for General Surgery. 2. Dr. Wang for Nephrology, mild hyponatremia. 3. Dr. Merritt, Cardiology. BRIEF COURSE DURING HOSPITALIZATION: The patient initially came to the ER on the 01 of June with complaints of abdominal pain, nausea, and vomiting. She has had a CT angio of the chest due to elevated D-dimer and CT abdomen and pelvis with contrast for abdominal pain. Clinically, the patient had epigastric pain. She was suspected to have acute cholecystitis. The patient was also in atrial fibrillation with RVR and was placed on Cardizem drip and admitted to [facility]. The patient soon converted to sinus rhythm. She has had consultation with Dr. Eubanks for General Surgery and Dr. Merritt for Cardiology. The patient had known history of aortic stenosis from last 1 year and has not had followups with her cancer program consultant. Complete workup for gallbladder was done and the patient was suspected to have acalculous cholecystitis. In view of severe aortic stenosis with the patient developing left bundle-branch block when her heart rate reaches above 90 with wide complex rhythm due to underlying LBBB, she was started on amiodarone for the same. In view of severe aortic stenosis and underlying gallbladder issue, the patient was deemed appropriate to be transferred to higher level of care by cancer program consultant, Dr. Merritt. Dr. Cruz at [facility] has accepted the patient. She will be shortly airlifted to [facility] in an emergent fashion for likely procedure on aortic valve prior to proceeding to remove her gallbladder. She has otherwise remained hemodynamically stable, but in critical condition. The total of 35 minutes was spent on discharge plan. Please note, I have seen and examined the patient on the day of discharge. Job ID: [id number]
== END 2020-06-02 17:08 | disposition short-term general hospital (02) | DRG 444 ==
LOC: ERS 20:45 → IMCU/EMU 06-01 00:35
PROVIDERS: ADMIT Internal Medicine; ATTEND Internal Medicine
DX: K81.0 Acute cholecystitis (principal); I50.31 Acute diastolic (congestive) heart failure; E87.1 Hypo-osmolality and hyponatremia; I42.0 Dilated cardiomyopathy; E03.9 Hypothyroidism, unspecified; F41.9 Anxiety disorder, unspecified; E87.6 Hypokalemia; T50.2X5A Adverse effect of carbonic-anhydrase inhibitors, benzothiadiazides and other diuretics, initial encounter; Z20.828 Contact with and (suspected) exposure to other viral communicable diseases; I35.0 Nonrheumatic aortic (valve) stenosis; I10 Essential (primary) hypertension; I48.0 Paroxysmal atrial fibrillation; Z90.49 Acquired absence of other specified parts of digestive tract; Z88.0 Allergy status to penicillin; Z79.01 Long term (current) use of anticoagulants; Z88.1 Allergy status to other antibiotic agents; Z88.8 Allergy status to other drugs, medicaments and biological substances
CPT/HCPCS: 36415; 71045; 71275; 74177; 76705; 78227; 80053; 82550; 82553; 83605; 83690; 83880; 83930; 83935; 84145; 84300; 84443; 84484; 85007; 85025; 85027; 85379; 87040; 87635; 93005; 93010; 93306; 96365; 96366; 96374; 96375; 96376; A9537; J0282; J1160; J1200; J1940; J2060; J2185; J2370; J2543; J2920; J2930; J3010; J7070; Q9967; S0020; S0028; U0003

== ENCOUNTER 2020-09-24 11:58 | Emergency (ER) | payer MEDICARE ==
[2020-09-24] MEDS ORDERED: Morphine 2 MG/ML VIAL ONE (14:06)
--- NOTE | 2020-09-24 14:26 | CT ---
CT thoracic spine noncontrast: 09/24/2020 HISTORY: 80-year-old female with acute, nontraumatic mid and lower back pain COMPARISON: 05/31/2020 FINDINGS: Diffuse osteopenia. Again noted is the large Schmorl's node at the inferior endplate of T11, deeply occupying approximate ly the inferior 60% of the vertical height of the vertebral body. Minimal inferior endplate bony retropulsion. Very mild anterior wedge compression loss of height. These are all unchanged. New finding of broad, shallow depression of L1 vertebral body, with mild bony retropulsion, and maxim um central degree of loss of height of approximately 20-35%. The rest of the thoracic vertebral body heights are maintained. No displaced posterior rib acute frac ture. No pleural effusion or consolidation at posterior aspects of lungs. No hematoma in the perivertebral spaces. No central spinal canal stenosis or high-grade neural foraminal stenosis. Mild lateral curvature of mid to upper T-spine. TAVR metallic stent at proximal aorta. IMPRESSION: 1.) New acute compression fracture of L1. See separate report of CT of lumbar spine. 2.) Large Schmorl's node at inferior endplate of T11 vertebral body, with minimal bony retropulsion, mild chronic anterior wedge loss of height, unchanged since 05/31/2020. 3.) Osteoporosis. 4) transcatheter aortic valve replacement.
--- NOTE | 2020-09-24 14:38 | CT ---
CT thoracic spine noncontrast: 09/24/2020 HISTORY: 80-year-old female with sudden onset nontraumatic low back pain COMPARISON: CT abdomen and pelvis of 05/31/2020 FINDINGS: There are 5 lumbar-type vertebrae. Diffuse osteopenia. New finding of broad, shallow depression of superior endplate of L1, with maximum central vertical de pression of approximately 20-35%. Mild bony retropulsion which does not cause significant central spinal canal stenosis. The L2 and L3 vertebral body heights are maintained. Broad, moderately deep indentation of inferior endplate of L4 with inferior endplate bony retropulsio n. Overall maximum central loss of height of approximately 30-60%. No interval change. Grade 2 anterolisthesis of L4 on L5 due to bilateral L4 pars interarticularis defects. Associated sev ere bilateral facet DJD at L4-5. Wide decompressive laminectomy defect at L4-5. Severe left and moderate-severe right neural foraminal stenosis at L4-5. No stenosis of the rest of the neural foramina. No significant central spinal canal stenosis at any level. Spinal canal is generous in caliber. There is a punctate 2 mm calculus in the right renal collecting system midpole. Diffuse osteopenia. IMPRESSION: 1.) Acute burst fracture of superior endplate of L1 vertebra, with mild loss of height. 2) grade 2 spondylolisthesis at L4-5 due to bilateral L4 spondylolysis. 3) status post decompressive laminectomy at L4-5. 4) old burst fracture of inferior endplate of L4. 5) severe left, and moderate-severe right neural foraminal stenosis at L4-5. 6) no central spinal canal stenosis. 7) mild nephrolithiasis consisting of a single tiny right renal calculus.
[2020-09-24] MEDS ORDERED: Ondansetron ODT 4 MG TAB ONE ×2 (14:55→17:43)
[2020-09-24] MEDS ORDERED: HYDROcodone/Acetaminophen 10/325 mg Tablet ONE (14:55)
== END 2020-09-24 17:45 | disposition home or self-care (01) ==
LOC: ERS 11:58
DX: S32.011A Stable burst fracture of first lumbar vertebra, initial encounter for closed fracture (principal); E03.9 Hypothyroidism, unspecified; I10 Essential (primary) hypertension; I48.91 Unspecified atrial fibrillation; I35.0 Nonrheumatic aortic (valve) stenosis; F41.9 Anxiety disorder, unspecified; X50.1XXA Overexertion from prolonged static or awkward postures, initial encounter; Z79.899 Other long term (current) drug therapy
CPT/HCPCS: 72128; 72131; 96372; 99283; J2270; Q0162

== ENCOUNTER 2023-06-10 20:49 | Emergency (ER) | payer OTHER, MEDICARE ==
[~2023-06-10 20:49] MED LIST changes: -Iopamidol-370 76% 500 ML 1 ML ONE; +Iopamidol-370 76% 500 ML MDV (1 ML CHARGE) ONE
[2023-06-10] MEDS ORDERED: Acetaminophen 500 MG TAB ONE (21:28)
[2023-06-10 21:29] LABS: #Basophils 0.1 thou/uL (0.0-0.2); #Monocytes 0.6 thou/uL (0.11-0.59); #Neutrophils 3.5 thou/uL (1.40-6.50); %Basophils 0.7 % (0.0-1.0); %Eosinophils 0.3 % (0.0-10.0); %Monocytes 9.3 % (0.0-10.0); %Neutrophils 52.6 % (42.0-75.0); Hematocrit 41.9 % (36.0-47.0); Hemoglobin 14.6 g/dL (12.0-16.0); Mean Corpuscular HGB CONC 34.8 g/dL (32.0-36.0); Mean Corpuscular Hemoglobin 31.9 pg (27.0-31.0); Mean Corpuscular Volume 91.7 fl (78.0-98.0); Mean Platelet Volume 9.8 fL (7.4-10.4); Platelet Count 233 10x3/uL (130-400); RBC Distribution Width 13.3 % (11.5-14.5); Red Blood Cell (RBC) Count 4.57 mill/uL (4.20-5.40); White Blood Cell (WBC) Count 6.7 10x3/uL (4.8-10.8)
[2023-06-10 21:49] LABS: INR-International Normal Ratio 1.1; Prothrombin Time 14.4 sec (12.0-14.7)
[2023-06-10 21:50] LABS: PTT 34.1 sec (22.9-36.1)
[2023-06-10 21:52] LABS: ALT (SGPT) 25 U/L (8-55); AST (SGOT) 31 U/L (5-34); Albumin 4.8 g/dL (3.4-4.8); Alkaline Phosphatase 70 U/L (40-110); Anion Gap 12 mmol/L (10-20); BUN (Urea Nitrogen) 15 mg/dL (9.8-20.1); Bilirubin, Total 0.5 mg/dL (0.2-1.2); Calc. Creatinine Clearance 0 mL/min (70-130); Carbon Dioxide 30 mmol/L (23-31); Chloride 99 mmol/L (98-107); Estimated GFR 63; Globulin 4.6 g/dL (2.4-3.5); Glucose 110 mg/dL (83-110); Potassium 3.5 mmol/L (3.5-5.1); Protein, Total 9.4 g/dL (5.8-8.1); Sodium 137 mmol/L (136-145)
== END 2023-06-10 23:56 | disposition home or self-care (01) ==
LOC: ERS 20:49
DX: M54.50 Low back pain, unspecified (principal); R51.9 Headache, unspecified; M79.642 Pain in left hand; I10 Essential (primary) hypertension; V63.9XXA Unspecified occupant of heavy transport vehicle injured in collision with car, pick-up truck or van in traffic accident, initial encounter
CPT/HCPCS: 70450; 71260; 72125; 74177; 80053; 85025; 85610; 85730; 93005; Q9967

== ENCOUNTER 2024-04-17 14:32 | Inpatient (IN) | payer MEDICARE ==
[2024-04-17 15:01] LABS: #Basophils 0.07 10x3/uL (0.0-0.2); %Basophils 0.8 % (0.0-1.0); %Eosinophils 0.8 % (0.0-10.0); %Lymphocytes 40.5 % (21.0-51.0); %Monocytes 6.8 % (0.0-10.0); %Neutrophils 50.9 % (42.0-75.0); Hematocrit 46.2 % (36.0-47.0); Hemoglobin 15.3 g/dL (12.0-16.0); Mean Corpuscular HGB CONC 33.1 g/dL (32.0-36.0); Mean Corpuscular Hemoglobin 31.4 pg (27.0-31.0); Mean Corpuscular Volume 94.7 fL (78.0-98.0); Mean Platelet Volume 10.3 fL (7.4-10.4); Platelet Count 306 10x3/uL (130-400); Red Blood Cell (RBC) Count 4.88 mill/uL (4.20-5.40)
[2024-04-17] MEDS ORDERED: dilTIAZem 25 MG/5 ML VIAL ONE ×2 (15:14→16:57)
[2024-04-17 15:19] LABS: Magnesium 2.5 mg/dL (1.6-2.6)
[2024-04-17] MEDS ORDERED: dilTIAZem 125 MG/25 ML SDV ONE (15:20)
[2024-04-17 15:26] LABS: Troponin I 0.048 ng/mL (< 0.028)
[2024-04-17] MEDS ORDERED: Ondansetron PF 4 MG/2 ML Vial IVP PRN (18:50)
[2024-04-17] MEDS ORDERED: Ondansetron ODT 4 MG TAB PO PRN (18:50)
[2024-04-17 19:07] LABS: Troponin I 0.036 ng/mL (< 0.028)
[2024-04-17 21:48] VITALS: BMI 22.4
[2024-04-17] MEDS: dilTIAZem 125 MG in Sodium Chloride 0.9% 100 ML IVPB SCH (22:37)
[2024-04-17 22:39] LABS: Troponin I 0.035 ng/mL (< 0.028)
[2024-04-17 23:35] LABS: Anion Gap 15 mmol/L (10-20); BUN (Urea Nitrogen) 16 mg/dL (9.8-20.1); Calc. Creatinine Clearance 46 mL/min (70-130); Calcium 9.4 mg/dL (7.8-10.44); Carbon Dioxide 25 mmol/L (23-31); Chloride 104 mmol/L (98-107); Estimated GFR 73; Glucose 117 mg/dL (83-110); Potassium 3.5 mmol/L (3.5-5.1); Sodium 140 mmol/L (136-145)
[2024-04-18 04:26] LABS: #Basophils 0.05 10x3/uL (0.0-0.2); %Basophils 0.8 % (0.0-1.0); %Eosinophils 1.3 % (0.0-10.0); %Lymphocytes 37.7 % (21.0-51.0); %Monocytes 9.6 % (0.0-10.0); %Neutrophils 50.4 % (42.0-75.0); Hemoglobin 12.9 g/dL (12.0-16.0); Mean Corpuscular HGB CONC 33.1 g/dL (32.0-36.0); Mean Corpuscular Hemoglobin 31.7 pg (27.0-31.0); Mean Corpuscular Volume 95.8 fL (78.0-98.0); Mean Platelet Volume 10.8 fL (7.4-10.4); Platelet Count 286 10x3/uL (130-400); RBC Distribution Width 13.2 % (11.5-14.5); Red Blood Cell (RBC) Count 4.07 mill/uL (4.20-5.40)
[2024-04-18] MEDS: Acetaminophen 325 MG TAB PO PRN (05:12)
[2024-04-18 05:19] LABS: Anion Gap 14 mmol/L (10-20); BUN (Urea Nitrogen) 18 mg/dL (9.8-20.1); Calc. Creatinine Clearance 45 mL/min (70-130); Calcium 9.2 mg/dL (7.8-10.44); Carbon Dioxide 26 mmol/L (23-31); Chloride 104 mmol/L (98-107); Estimated GFR 71; Glucose 95 mg/dL (83-110); Magnesium 2.2 mg/dL (1.6-2.6); Potassium 3.5 mmol/L (3.5-5.1); Sodium 140 mmol/L (136-145)
[2024-04-18] MEDS: Lisinopril 20 MG TAB PO SCH (09:11)
[2024-04-18] MEDS: Hydrochlorothiazide 25 MG TAB PO SCH (09:11)
[2024-04-18] MEDS: Apixaban 2.5 MG TAB PO SCH (09:11)
[2024-04-18] MEDS: Thyroid 60 MG TAB PO SCH (09:12)
[2024-04-18] MEDS: Furosemide 40 MG (4 mL) VIAL SLOW IVP SCH (17:16)
[2024-04-18] MEDS: Metoprolol Tartrate 50 MG TAB PO SCH (20:39)
[2024-04-18] MEDS: Amiodarone 200 MG TAB PO SCH (20:39)
[2024-04-18] MEDS: Lorazepam 0.5 MG TAB PO SCH (20:39)
[2024-04-18] MEDS ORDERED: Flecainide 50 MG TAB PO SCH (21:00)
[2024-04-19 15:13] VITALS: BP 169/79; TEMP 97.8
== END 2024-04-19 16:05 | disposition home or self-care (01) | DRG 308 ==
LOC: ERS 14:32 → 2NO 18:10
PROVIDERS: ADMIT Hospitalist; ATTEND Internal Medicine
DX: I48.0 Paroxysmal atrial fibrillation (principal); I50.33 Acute on chronic diastolic (congestive) heart failure; I11.0 Hypertensive heart disease with heart failure; E03.9 Hypothyroidism, unspecified; Z88.1 Allergy status to other antibiotic agents; Z88.0 Allergy status to penicillin; Z79.890 Hormone replacement therapy; Z79.01 Long term (current) use of anticoagulants; Z79.899 Other long term (current) drug therapy; Z90.49 Acquired absence of other specified parts of digestive tract; Z95.2 Presence of prosthetic heart valve; Z88.5 Allergy status to narcotic agent; Z79.1 Long term (current) use of non-steroidal anti-inflammatories (NSAID)
CPT/HCPCS: 36415; 71045; 80048; 83735; 83880; 84443; 84484; 85025; 93005; 96365; 96366; 96376; J1940; J3490

== ENCOUNTER 2024-04-30 13:31 | Inpatient (IN) | payer MEDICARE ==
[2024-04-30 15:25] LABS: #Basophils 0.03 10x3/uL (0.0-0.2); #Eosinphils Less than 0.03 10x3/uL (0.0-0.7); %Basophils 0.4 % (0.0-1.0); %Eosinophils 0.1 % (0.0-10.0); %Lymphocytes 15.4 % (21.0-51.0); %Neutrophils 79.8 % (42.0-75.0); Hematocrit 35.6 % (36.0-47.0); Hemoglobin 11.7 g/dL (12.0-16.0); Mean Corpuscular HGB CONC 32.9 g/dL (32.0-36.0); Mean Corpuscular Hemoglobin 32.3 pg (27.0-31.0); Mean Corpuscular Volume 98.3 fL (78.0-98.0); Mean Platelet Volume 10.4 fL (7.4-10.4); Platelet Count 216 10x3/uL (130-400); RBC Distribution Width 13.2 % (11.5-14.5); Red Blood Cell (RBC) Count 3.62 mill/uL (4.20-5.40)
[2024-04-30 15:42] LABS: Troponin I 0.016 ng/mL (< 0.028)
[2024-04-30 15:52] LABS: ALT (SGPT) 13 U/L (8-55); AST (SGOT) 16 U/L (5-34); Albumin 3.5 g/dL (3.4-4.8); Alkaline Phosphatase 78 U/L (40-110); Anion Gap 17 mmol/L (10-20); BUN (Urea Nitrogen) 18 mg/dL (9.8-20.1); Bilirubin, Total 0.5 mg/dL (0.2-1.2); Calc. Creatinine Clearance 0 mL/min (70-130); Calcium 9.1 mg/dL (7.8-10.44); Carbon Dioxide 23 mmol/L (23-31); Chloride 101 mmol/L (98-107); Estimated GFR 45; Globulin 4.1 g/dL (2.4-3.5); Glucose 145 mg/dL (83-110); Magnesium 2.3 mg/dL (1.6-2.6); Potassium 3.7 mmol/L (3.5-5.1); Protein, Total 7.6 g/dL (5.8-8.1); Sodium 137 mmol/L (136-145)
[2024-04-30] MEDS ORDERED: Senokot S 8.6-50 MG TAB PO PRN (17:39)
[2024-04-30] MEDS ORDERED: Calcium Carbonate 500 MG ChewTAB PO PRN (17:39)
[2024-04-30] MEDS ORDERED: Furosemide 20 MG (2 mL) VIAL ONE (18:24)
[2024-04-30 18:38] LABS: Free T4 (Free Thyroxine) 2.36 ng/dL (0.70-1.48); Thyroid Stimulating Hormone 0.2327 uIU/mL (0.35-4.94)
[2024-04-30 20:11] VITALS: BMI 20.5
[2024-04-30 20:26] LABS: Magnesium 2.1 mg/dL (1.6-2.6)
[2024-04-30] MEDS ORDERED: hydrALAZINE 20 MG/ML VIAL ONE (20:57)
[2024-04-30] MEDS: hydrALAZINE 20 MG/ML VIAL SLOW IVP SCH (21:05)
[2024-04-30] MEDS ORDERED: Enoxaparin 60 MG (0.6 mL) SYRINGE ONE (21:29)
[2024-04-30] MEDS: Enoxaparin 60 MG (0.6 mL) SYRINGE SC SCH (21:35)
[2024-04-30] MEDS ORDERED: Atropine Sulfate 1 mg/1 ml Vial IVP PRN (23:03)
[2024-04-30] MEDS: Ibuprofen 200 MG TAB PO PRN (23:36)
[2024-04-30] MEDS: Lorazepam 0.5 MG TAB PO PRN (23:37)
[2024-05-01 05:03] LABS: #Basophils 0.05 10x3/uL (0.0-0.2); %Basophils 0.6 % (0.0-1.0); %Eosinophils 0.9 % (0.0-10.0); %Monocytes 7.3 % (0.0-10.0); %Neutrophils 52.9 % (42.0-75.0); Hematocrit 38.4 % (36.0-47.0); Hemoglobin 12.7 g/dL (12.0-16.0); Mean Corpuscular HGB CONC 33.1 g/dL (32.0-36.0); Mean Corpuscular Hemoglobin 31.8 pg (27.0-31.0); Mean Corpuscular Volume 96.2 fL (78.0-98.0); Mean Platelet Volume 10.5 fL (7.4-10.4); Platelet Count 263 10x3/uL (130-400); RBC Distribution Width 13.3 % (11.5-14.5); Red Blood Cell (RBC) Count 3.99 mill/uL (4.20-5.40)
[2024-05-01 05:23] LABS: Anion Gap 15 mmol/L (10-20); BUN (Urea Nitrogen) 16 mg/dL (9.8-20.1); Calc. Creatinine Clearance 28 mL/min (70-130); Calcium 9.4 mg/dL (7.8-10.44); Carbon Dioxide 30 mmol/L (23-31); Chloride 98 mmol/L (98-107); Estimated GFR 46; Glucose 90 mg/dL (83-110); Potassium 3.2 mmol/L (3.5-5.1); Sodium 140 mmol/L (136-145)
[2024-05-01] MEDS ORDERED: Thyroid 60 MG TAB PO SCH (09:00)
[2024-05-01] MEDS: Potassium Chloride 20 MEQ TAB PO SCH (09:09)
[2024-05-01] MEDS: Thyroid 60 MG TAB PO SCH (09:09)
[2024-05-01] MEDS: Lisinopril 20 MG TAB PO SCH (09:09)
[2024-05-01] MEDS: hydrALAZINE 20 MG/ML VIAL SLOW IVP SCH (17:42)
[2024-05-02] MEDS: hydrALAZINE 20 MG/ML VIAL SLOW IVP SCH (05:24)
[2024-05-02] MEDS ORDERED: Enoxaparin 60 MG (0.6 mL) SYRINGE SC SCH ×2 (09:00→21:00)
[2024-05-02] MEDS ORDERED: Amiodarone 200 MG TAB PO SCH (09:00)
[2024-05-02] MEDS: Amiodarone 200 MG TAB PO SCH (09:23)
[2024-05-02] MEDS ORDERED: Ondansetron PF 4 MG/2 ML Vial IVP PRN (12:04)
[2024-05-02] MEDS: Ondansetron PF 4 MG/2 ML Vial IVP SCH (12:44)
[2024-05-02] MEDS: hydrALAZINE 25 MG TAB PO SCH (15:33)
[2024-05-02] MEDS: Apixaban 2.5 MG TAB PO SCH (21:07)
[2024-05-03 06:02] LABS: Anion Gap 11 mmol/L (10-20); BUN (Urea Nitrogen) 15 mg/dL (9.8-20.1); Calc. Creatinine Clearance 30 mL/min (70-130); Calcium 8.8 mg/dL (7.8-10.44); Carbon Dioxide 24 mmol/L (23-31); Chloride 101 mmol/L (98-107); Estimated GFR 44; Glucose 115 mg/dL (83-110); Potassium 3.8 mmol/L (3.5-5.1); Sodium 132 mmol/L (136-145)
[2024-05-03 16:14] VITALS: BP 165/72; TEMP 97.9
[2024-05-05] MEDS ORDERED: Thyroid 60 MG TAB PO SCH (06:00)
[2024-05-10] MEDS ORDERED: Amiodarone 200 MG TAB PO SCH (09:00)
== END 2024-05-03 17:53 | disposition home or self-care (01) | DRG 291 ==
LOC: ERS 13:31 → ERHOLD 16:39 → 2NO 22:21 → OBSVTOIN 05-01 17:15
PROVIDERS: ADMIT Family Medicine; ATTEND Internal Medicine
DX: I11.0 Hypertensive heart disease with heart failure (principal); I50.33 Acute on chronic diastolic (congestive) heart failure; N17.9 Acute kidney failure, unspecified; E22.2 Syndrome of inappropriate secretion of antidiuretic hormone; I49.5 Sick sinus syndrome; E03.9 Hypothyroidism, unspecified; E87.6 Hypokalemia; I48.0 Paroxysmal atrial fibrillation; Z88.1 Allergy status to other antibiotic agents; Z88.0 Allergy status to penicillin; Z88.5 Allergy status to narcotic agent
CPT/HCPCS: 36415; 71045; 74018; 80048; 80053; 83735; 83880; 84439; 84443; 84484; 85025; 93005; 94760; 96374; 96375; G0378; J0360; J1650; J1940; J2405